=== PATIENT | female | born 1940 | race Caucasian/White ===

== ENCOUNTER 2020-08-06 17:17 | Emergency (ER) | payer MEDICARE, OTHER, SELFPAY ==
[2020-08-06 17:34] VITALS: BP 195/102; PULSE 107; RESP 24; TEMP 36.8; O2SAT 94; BMI 37.0
--- NOTE | 2020-08-06 18:30 | XRR_ITS ---
PROCEDURE INFORMATION: Exam: XR Right Wrist Exam date and time: 08/06/2020 6:36 PM Age: 80 years old Clinical indication: Injury or trauma; Fall; Blunt trauma (contusions or hematomas); Wrist; Right; Additional info: RT wrist pain TECHNIQUE: Imaging protocol: XR Right wrist. Views: 3 or more views. Total images: 3 COMPARISON: No relevant prior studies available. FINDINGS: Bones/joints: No visible acute osseous abnormality, fracture, subluxation, or dislocation. No radiographically visible joint effusion. Mild chondrocalcinosis. Osteopenia. Soft tissues: Soft tissues without evidence of edema, swelling, contusion, emphysema, or radiopaque foreign body. Vasculature: Arteriosclerosis. XR/XR wrist RT min 3V* [id number] IMPRESSION: No radiographically visible fracture.
--- NOTE | 2020-08-06 18:49 | ED_ITS ---
HPI - Extremity Problem General: Chief complaint: Extremity Problem,Nontraumatic Stated complaint: R ARM INJURY Time Seen by Provider: 08/06/20 18:43 Source: patient and family (spouse) Mode of arrival: ambulatory Limitations: no limitations History of Present Illness: HPI Narrative: Pleasant 80-year-old female patient presents to the emergency department with complaints of right wrist and right hand pain. She reports pain started in her fingers 2 days ago and now is radiating to the right wrist. She reports pulling herself up into her son's large, tall truck with her right hand to get in. She reports this occurred several times on Monday. She has not had anything for pain. She remains on Xarelto, takes Xarelto daily as prescribed, history of atrial fibrillation. MD Complaint: extremity pain and extremity swelling Pain Consistency: constant Location: right and upper extremity Quality: aching Radiation: proximal Relieving factors: immobilization and rest Exacerbating factors: range of motion Associated symptoms: Reports arthralgias; Deny chest pain, fever(s) or rash Review of Systems General: Reports: 10 or more systems reviewed and unremarkable except in HPI and below Const: Denies: fever(s), chills or diaphoresis Eyes: Denies: blurry vision or eye redness ENMT: Denies: throat pain, dental pain or disequilibrium Card: Denies: chest pain, palpitations or irregular heart rhythm Resp: Denies: dyspnea, productive cough, non-productive cough or wheezing GI: Denies: abdominal pain, nausea or vomiting : Denies: difficulty voiding or dysuria Musc: Reports: extremity pain, joint pain and joint swelling; Denies: neck pain or back pain Skin/Breast: Denies: rash or pruritus Neuro: Denies: headache(s), weakness in extremities or behavioral changes Psych: Denies: anxiety or depression Gary/Lymph: Denies: easy bruising PFSH ED PFSH: Medical History Arthritis Physical Exam Const: COMMON NORMALS: no acute distress, patient oriented x3, healthy appearing, alert and well nourished GENERAL APPEARANCE: cooperative, comfortable, well kempt, well developed and well hydrated; not anxious and not frail appearing ORIENTATION/CONSCIOUSNESS: Yes awake, Yes oriented to person, Yes oriented to place and Yes oriented to time HENMT: COMMON NORMALS: normocephalic, atraumatic, Normal external nose present and moist oral mucous membranes HEAD & SCALP: normal to inspection, normocephalic and atraumatic FACE & SINUS: normal facial exam and face symmetric NOSE: Normal external nose present Eye: COMMON NORMALS: Equal, round and reactive pupils present and EOMs intact bilaterally GENERAL EYE: appearance normal, both eyes and all related structures PUPIL: Yes Equal, round and reactive pupils present Neck/C-Spine: COMMON NORMALS: full ROM and no lymphadenopathy GENERAL: Yes normal visual inspection and Yes trachea midline CERVICAL SPINE: Yes cervical ROM normal Lymph: LYMPHATIC: no lymphadenopathy noted Chest: COMMONS NORMALS: normal inspection of the chest Resp: COMMON NORMALS: normal respiratory effort and clear to auscultation bilaterally AUSCULTATION: clear to auscultation bilaterally Cardio: COMMON NORMALS: regular rhythm, S1 normal heart sound present and S2 normal heart sound present RHYTHM: regular rhythm HEART SOUNDS: S1 normal heart sound present and S2 normal heart sound present GI: COMMON NORMALS: Soft to palpation and non-tender INSPECTION: Yes normal to inspection PALPATION: Yes Soft to palpation : COMMON NORMALS: Yes no CVA tenderness BLADDER/KIDNEY EXAM: Yes no CVA tenderness Back/Pelvis: COMMON NORMALS: no CVA tenderness and thoracic and lumbar spine normal to inspection Extremity: COMMON NORMALS: normal to inspection, capillary refill normal, no clubbing, cyanosis or edema and no pedal edema GENERAL: Yes normal exam except as noted OTHER: rt wrist with swelling radial side with erythema localized to the distal radial wrist, volar side, rt hand with swelling, flexion/extension to the digits of the rt hand noted but limited due to pain, no wounds/abrasions noted, no pain with supination/pronation Neuro: COMMON NORMALS: patient oriented x3 and no focal motor deficits SENSORIUM/ORIENTATION: Yes alert, Yes oriented to person, Yes oriented to place and Yes oriented to time SPEECH: speech normal GAIT: Yes Normal gait present MOTOR EXAM: 5/5 motor strength present throughout Psych: COMMON NORMALS: mental status grossly normal, Normal thought process present and cooperative APPEARANCE: Yes well kempt ACTIVITY/MOTOR BEHAVIOR: Yes appropriate eye contact THOUGHT PROCESS: Normal thought process present Skin: COMMON NORMALS: no rashes or lesions noted and turgor normal GENERAL SKIN EXAM: no rashes or lesions noted and turgor normal Course Vital Signs: Vital signs: Vital Signs Temperature 98.3 F 08/06/20 17:34 Pulse Rate 107 H 08/06/20 17:34 Respiratory Rate 24 H 08/06/20 17:34 Blood Pressure 195/102 08/06/20 17:34 Pulse Oximetry 94 08/06/20 17:34 MDM - Extremity (Nontraumatic) Imaging Data^: Xray Ortho: Radiologist's impression: [place] [address] [id number] ReportSigned Patient: Lizzie Coughlinit #: [id number]: [id number]#:[id number]/Sex: 80 / FADM Date: 08/06/20Loc: ERRoom/Bed:Attending Dr: Ordering Provider/Ordering MD: Shaina Turner Date of Service: 08/06/20 Procedure(s): XR wrist RT min 3V* [id number] Accession Number(s): [id number] Report Number: [id number] PROCEDURE INFORMATION: Exam: XR Right Wrist Exam date and time: 08/06/2020 6:36 PM Age: 80 years old Clinical indication: Injury or trauma; Fall; Blunt trauma (contusions or hematomas); Wrist; Right; Additional info: RT wrist pain TECHNIQUE: Imaging protocol: XR Right wrist. Views: 3 or more views. Total images: 3 COMPARISON: No relevant prior studies available. FINDINGS: Bones/joints: No visible acute osseous abnormality, fracture, subluxation, or dislocation. No radiographically visible joint effusion. Mild chondrocalcinosis. Osteopenia. Soft tissues: Soft tissues without evidence of edema, swelling, contusion, emphysema, or radiopaque foreign body. Vasculature: Arteriosclerosis. XR/XR wrist RT min 3V* [id number] IMPRESSION: No radiographically visible fracture. Dictated By:Barbi Ge By:Barbi Ge Date/Time:08/06/201906DD/ 05 Discharge Plan Discharge Patient Disposition: Home Clinical Impression: Acute traumatic arthritis Muscle strain of right wrist Qualifiers: Encounter type: initial encounter Qualified Code(s): S66.911A - Strain of unspecified muscle, fascia and tendon at wrist and hand level, right hand, initial encounter Condition: Stable Prescriptions: New Arthritis Pain (diclofenac) 1 % gel 2 g topical QID Qty: 100 RF: 0 Discharge Orders: Discharge ED (Routine); Ordered 08/06/20 Ordered By: Shaina Turner Referrals: Sheela Rodriguez MD [Primary Care Provider] - Discharge Diet: Usual diet Discharge Activity: Limit activity as instructed Patient Instructions: Wrist Injury (ED), Muscle Strain (ED), Opioid Safety Activity Restrictions/Additional Instructions: Follow-up with your primary care provider next week if not improved, return to the emergency room immediately if you notice redness swelling of the right entire arm or increased pain, fever or chills. Cool compresses to the right wrist several times daily to help with pain and swelling May take Tylenol as needed for pain, use Voltaren gel topically as prescribed to help with pain and swelling there will be no interaction between Voltaren gel and Xarelto Return to the emergency room immediately if you develop inability to feel your right hand or if fingers become discolored. Limit use of the right upper extremity until symptoms have improved Coding Level of Care Code ED [facility] Fwd Exam Comprehensive
[2020-08-06] MEDS: acetaminophen 500 mg Tablet 1000 MG PO (18:58)
== END 2020-08-06 19:55 | disposition home or self-care (01) ==
PROVIDERS: Emergency Provider Nurse Practitioner Family; PCP Family Medicine
DX: S66.911A Strain of unspecified muscle, fascia and tendon at wrist and hand level, right hand, initial encounter (principal); M12.50 Traumatic arthropathy, unspecified site; X50.9XXA Other and unspecified overexertion or strenuous movements or postures, initial encounter
CPT/HCPCS: 73110; 99283

== ENCOUNTER → 2021-06-16 10:11 | Outpatient (BNVA) | payer MEDICARE, OTHER, SELFPAY | PROVIDERS: PCP Family Medicine; Visit Provider Internal Medicine Cardiovascular Disease | DX: I25.810 Atherosclerosis of coronary artery bypass graft(s) without angina pectoris (principal); I10 Essential (primary) hypertension; I48.91 Unspecified atrial fibrillation | CPT/HCPCS: 99214; 99215 ==

== ENCOUNTER 2021-12-03 22:12 | Emergency (ER) | payer MEDICARE, OTHER, SELFPAY ==
[2021-12-03 22:16] VITALS: BP 199/101; PULSE 82; RESP 18; TEMP 36.4; O2SAT 96; BMI 32.3
--- NOTE | 2021-12-03 22:33 | ED_ITS ---
Documented by User: LORENA Sigala 12/04/21 00:35 HPI - General Adult General: Chief complaint: General Medical Stated complaint: doc sent for thin blood Time Seen by Provider: 12/03/21 22:27 History of Present Illness: 81-year-old female comes in today for complaints of abnormal lab test. Patient sees Sheela Rodriguez and had had her INR checked last Monday which showed at 8 at that time. Patient has had her warfarin held since that time and has had 2 more checks with the last INR reading 18. Patient was referred to the ER for further evaluation and treatment. Patient denied any abnormal bleeding, blood in the urine, or blood in her stool. Associated symptoms: Deny dyspnea, headache(s) or rash Review of Systems General: Reports: 10 or more systems reviewed and unremarkable except in HPI and below Resp: Denies: dyspnea GI: Denies: abdominal pain Skin/Breast: Denies: rash Neuro: Denies: headache(s) PFSH ED PFSH: Medical History Arthritis Atrial fibrillation CAD (coronary artery disease) of artery bypass graft Carotid bruit Chronic anticoagulation CKD (chronic kidney disease) Patient denies Fatigue Hx of type 2 diabetes mellitus Hyperlipidemia Hypertension Osteoporosis Rosacea TIA (transient ischemic attack) Surgical History History of parathyroidectomy Hx of cataract extraction Hx of hysterectomy Hx of salpingo-oophorectomy, bilateral S/P CABG x 4 Family History Sister Cancer CAD (coronary artery disease) Mother Diabetes CAD (coronary artery disease) Hypertension Stroke Cancer Dementia Denies family history of Clotting disorder Chronic kidney disease (CKD) Suicide Anesthesia complication Bleeding disorder Lung disease Social History Smoking and tobacco status: never smoked Alcohol intake: never Physical Exam Const: COMMON NORMALS: alert HENMT: COMMON NORMALS: normocephalic HEAD & SCALP: normocephalic Neck/C-Spine: COMMON NORMALS: full ROM Resp: COMMON NORMALS: normal respiratory effort and clear to auscultation bilaterally AUSCULTATION: clear to auscultation bilaterally Cardio: COMMON NORMALS: regular rate and regular rhythm RATE: regular rate RHYTHM: regular rhythm Extremity: COMMON NORMALS: normal to inspection Neuro: SENSORIUM/ORIENTATION: Yes alert Skin: COMMON NORMALS: turgor normal GENERAL SKIN EXAM: turgor normal Course Vital Signs: Vital signs: Vital Signs Temperature 97.6 F 12/03/21 22:16 Pulse Rate 73 12/04/21 00:36 Respiratory Rate 18 12/04/21 00:36 Blood Pressure 199/101 12/03/21 22:16 Pulse Oximetry 100 12/04/21 00:36 Oxygen Delivery Me thod 12/03/21 22:16 [facility] - General Adult Medical Decision Making 81-year-old female comes in today for concerns of abnormal INR. It was reported patient's INR was up to 18 today. Patient denies any bleeding. On exam lungs are clear to auscultation. Skin is warm and dry. Some mild senile purpura is noted. Differential diagnosis includes adverse effect of drug, DIC, hepatic disease. Reviewed exam and lab with Dr. Murry. INR was 8. After review of literature and further discussion we decided on administering 2-1/2 mg of oral vitamin K and recommend to recheck INR in 24 hours. I reviewed this with patient she reported understanding agreed to plan. Patient return in 24 hours to have INR repeated and then Dr. Sheela Rodriguez will be notified by lab. Lab Data : 12/03/21 22:55 12/03/21 22:55 Laboratory Results WBC 9.2 10^3/uL (4.0-10.0) 12/03/21 22:55 RBC 5.50 10^6/uL (4.1-5.3) H 12/03/21 22:55 Hgb 16.0 g/dL (11.5-15.3) H 12/03/21 22:55 Hct 50.6 % (37.0-47.0) H 12/03/21 22:55 MCV 92.0 fl (81-99) 12/03/21 22:55 MCH 29.1 pg (28.0-34.0) 12/03/21 22:55 MCHC 31.6 g/dL (30.0-36.0) 12/03/21 22:55 RDW 14.6 % (12.1-15.1) 12/03/21 22:55 Plt Count 344 10^3/cmm (130-400) 12/03/21 22:55 MPV 10.4 fL (7.4-10.4) 12/03/21 22:55 Neut % (Auto) 52.2 % 12/03/21 22:55 Lymph % (Auto) 32.8 % 12/03/21 22:55 Coke % (Auto) 8.3 % 12/03/21 22:55 Eos % (Auto) 5.7 % 12/03/21 22:55 Baso % (Auto) 0.8 % 12/03/21 22:55 Neut # (Auto) 4.81 10^3/uL (1.8-7.7) 12/03/21 22:55 Lymph # (Auto) 3.0 10^3/uL (0.8-4.8) 12/03/21 22:55 Coke # (Auto) 0.8 10^3/uL (0.2-0.9) 12/03/21 22:55 Eos # (Auto) 0.5 10^3/uL (0.0-0.8) 12/03/21 22:55 Baso # (Auto) 0.1 10^3/uL (0.0-0.1) 12/03/21 22:55 Nucleated RBC % (auto) 0 % 12/03/21 22: Nucleated RBCs # 0.0 /100WBC 12/03/21 22:55 PT 72.00 SECONDS (12.1-14.9) H 12/03/21 22:55 INR 8.81 (0.8-1.2) H* 12/03/21 22:55 APTT 74.2 SECONDS (23.9-36.7) H 12/03/21 22:55 Sodium 144 mmol/L (136-145) 12/03/21 22:55 Potassium 4.5 mmol/L (3.5-5.1) 12/03/21 22:55 Chloride 107 mmol/L (98-107) 12/03/21 22:55 Carbon Dioxide 25 mmol/L (22-29) 12/03/21 22:55 Anion Gap 16.5 (5-19) 12/03/21 22:55 BUN 28 mg/dL (8-23) H 12/03/21 22:55 Creatinine 1.4 mg/dL (0.5-0.9) H 12/03/21 22:55 GFR Calculation Not Reportable 12/03/21 22:55 Glucose 101 mg/dL (65-115) 12/03/21 22:55 Calculated Osmolality 304 mOsm/kg (285-295) H 12/03/21 22:55 Calcium 9.9 mg/dL (8.5-10.5) 12/03/21 22:55 Total Bilirubin 0.3 mg/dL (0.15-1.2) 12/03/21 22:55 AST 22 U/L (0-32) 12/03/21 22:55 ALT 15 U/L (0-33) 12/03/21 22:55 Alkaline Phosphatase 88 U/L (35-105) 12/03/21 22:55 Total Protein 7.9 g/dL (6.6-8.7) 12/03/21 22:55 Albumin 4.2 g/dL (3.5-5.2) 12/03/21 22:55 Globulin 3.7 g/dL (1.3-4.6) 12/03/21 22:55 Discharge Plan Discharge Patient Disposition: Home Clinical Impression: Abnormal INR Adverse reaction to drug Qualifiers: Encounter type: initial encounter Qualified Code(s): T50.905A - Adverse effect of unspecified drugs, medicaments and biological substances, initial encounter Condition: Stable Prescriptions: No Action Prosacea topical Xarelto 20 mg tablet 20 mg PO DAILY allopurinol 100 mg tablet 100 mg PO DAILY amlodipine 10 mg tablet 10 mg PO DAILY aspirin [Adult Aspirin Regimen] 81 mg tablet,delayed release (DR/EC) 81 mg PO DAILY clonidine HCl 0.3 mg tablet 0.3 mg PO DAILY isosorbide mononitrate 120 mg tablet extended release 24 hr 120 mg PO DAILY lisinopril 10 mg tablet 10 mg PO DAILY nitroglycerin [Nitrostat] 0.4 mg tablet, sublingual 0.4 mg sublingual Q5M PRN Rx Instructions: do not exceed 3 doses per episode glimepiride 2 mg tablet 2 mg PO DAILY lovastatin 40 mg tablet 40 mg PO DAILY hydralazine 25 mg tablet 25 mg PO TID Qty: 90 6RF metoprolol succinate 25 mg tablet extended release 24 hr 25 mg PO DAILY Qty: 90 3RF Discharge Orders: Discharge ED (Routine); Ordered 12/04/21 Ordered By: Danilo Alexandre Referrals: Sheela Rodriguez MD [Primary Care Provider] - Discharge Diet: Usual diet Discharge Activity: Increase activity as tolerated Patient Instructions: Vitamin K in Foods (ED), Warfarin Toxicity (ED) Activity Restrictions/Additional Instructions: Have a INR repeated tomorrow. Dr. Rodriguez will be notified of the results and will make further recommendations. Return to the ER for any signs of bleeding. Coding Level of Care Code ED Assistant Professor In Family Studies for [facility] Fwd Exam Detailed Documented by User: Angus Murry, 12/04/21 14:42 HPI - General Adult General: Chief complaint: General Medical Stated complaint: doc sent for thin blood Time Seen by Provider: 12/03/21 22:27 PFSH ED PFSH: Medical History Arthritis Atrial fibrillation CAD (coronary artery disease) of artery bypass graft Carotid bruit Chronic anticoagulation CKD (chronic kidney disease) Patient denies Fatigue Hx of type 2 diabetes mellitus Hyperlipidemia Hypertension Osteoporosis Rosacea TIA (transient ischemic attack) Surgical History History of parathyroidectomy Hx of cataract extraction Hx of hysterectomy Hx of salpingo-oophorectomy, bilateral S/P CABG x 4 Family History Sister Cancer CAD (coronary artery disease) Mother Diabetes CAD (coronary artery disease) Hypertension Stroke Cancer Dementia Denies family history of Clotting disorder Chronic kidney disease (CKD) Suicide Anesthesia complication Bleeding disorder Lung disease Social History Smoking and tobacco status: never smoked Alcohol intake: never Course Vital Signs: Vital signs: Vital Signs Temperature 97.6 F 12/03/21 22:16 Pulse Rate 73 12/04/21 00:36 Respiratory Rate 18 12/04/21 00:36 Blood Pressure 199/101 12/03/21 22:16 Pulse Oximetry 100 12/04/21 00:36 Oxygen Delivery Me thod 12/03/21 22:16 MDM - General Adult Medical Decision Making 81-year-old female comes in today for concerns of abnormal INR. It was reported patient's INR was up to 18 today. Patient denies any bleeding. On exam lungs are clear to auscultation. Skin is warm and dry. Some mild senile purpura is noted. Differential diagnosis includes adverse effect of drug, DIC, hepatic d isease. Reviewed exam and lab with Dr. Murry. INR was 8. After review of literature and further discussion we decided on administering 2-1/2 mg of oral vitamin K and recommend to recheck INR in 24 hours. I reviewed this with patient she reported understanding agreed to plan. Patient return in 24 hours to have INR repeated and then Dr. Sheela Rodriguez will be notified by lab. This patient was evaluated by LORENA Cervantes. I agree with his history, evaluation, and treatment. He discussed this case with me. We agreed on oral vitamin K therapy given her continued warfarin Coagulopathy despite not having her medication in at least two days. Close outpatient follow up for repeat INR testing. Lab Data : 12/03/21 22:55 12/03/21 22:55 Laboratory Results WBC 9.2 10^3/uL (4.0-10.0) 12/03/21 22:55 RBC 5.50 10^6/uL (4.1-5.3) H 12/03/21 22:55 Hgb 16.0 g/dL (11.5-15.3) H 12/03/21 22:55 Hct 50.6 % (37.0-47.0) H 12/03/21 22:55 MCV 92.0 fl (81-99) 12/03/21 22:55 MCH 29.1 pg (28.0-34.0) 12/03/21 22:55 MCHC 31.6 g/dL (30.0-36.0) 12/03/21 22:55 RDW 14.6 % (12.1-15.1) 12/03/21 22:55 Plt Count 344 10^3/cmm (130-400) 12/03/21 22:55 MPV 10.4 fL (7.4-10.4) 12/03/21 22:55 Neut % (Auto) 52.2 % 12/03/21 22:55 Lymph % (Auto) 32.8 % 12/03/21 22:55 Coke % (Auto) 8.3 % 12/03/21 22:55 Eos % (Auto) 5.7 % 12/03/21 22:55 Baso % (Auto) 0.8 % 12/03/21 22:55 Neut # (Auto) 4.81 10^3/uL (1.8-7.7) 12/03/21 22:55 Lymph # (Auto) 3.0 10^3/uL (0.8-4.8) 12/03/21 22:55 Coke # (Auto) 0.8 10^3/uL (0.2-0.9) 12/03/21 22:55 Eos # (Auto) 0.5 10^3/uL (0.0-0.8) 12/03/21 22:55 Baso # (Auto) 0.1 10^3/uL (0.0-0.1) 12/03/21 22:55 Nucleated RBC % (auto) 0 % 12/03/21: Nucleated RBCs # 0.0 /100WBC 12/03/21 22:55 PT 72.00 SECONDS (12.1-14.9) H 12/03/21 22:55 INR 8.81 (0.8-1.2) H* 12/03/21 22:55 APTT 74.2 SECONDS (23.9-36.7) H 12/03/21 22:55 Sodium 144 mmol/L (136-145) 12/03/21 22:55 Potassium 4.5 mmol/L (3.5-5.1) 12/03/21 22:55 Chloride 107 mmol/L (98-107) 12/03/21 22:55 Carbon Dioxide 25 mmol/L (22-29) 12/03/21 22:55 Anion Gap 16.5 (5-19) 12/03/21 22:55 BUN 28 mg/dL (8-23) H 12/03/21 22:55 Creatinine 1.4 mg/dL (0.5-0.9) H 12/03/21 22:55 GFR Calculation Not Reportable 12/03/21 22:55 Glucose 101 mg/dL (65-115) 12/03/21 22:55 Calculated Osmolality 304 mOsm/kg (285-295) H 12/03/21 22:55 Calcium 9.9 mg/dL (8.5-10.5) 12/03/21 22:55 Total Bilirubin 0.3 mg/dL (0.15-1.2) 12/03/21 22:55 AST 22 U/L (0-32) 12/03/21 22:55 ALT 15 U/L (0-33) 12/03/21 22:55 Alkaline Phosphatase 88 U/L (35-105) 12/03/21 22:55 Total Protein 7.9 g/dL (6.6-8.7) 12/03/21 22:55 Albumin 4.2 g/dL (3.5-5.2) 12/03/21 22:55 Globulin 3.7 g/dL (1.3-4.6) 12/03/21 22:55 Discharge Plan Discharge Patient Disposition: Home Clinical Impression: Abnormal INR Adverse reaction to drug Qualifiers: Encounter type: initial encounter Qualified Code(s): T50.905A - Adverse effect of unspecified drugs, medicaments and biological substances, initial encounter Condition: Stable Prescriptions: No Action Prosacea topical Xarelto 20 mg tablet 20 mg PO DAILY allopurinol 100 mg tablet 100 mg PO DAILY amlodipine 10 mg tablet 10 mg PO DAILY aspirin [Adult Aspirin Regimen] 81 mg tablet,delayed release (DR/EC) 81 mg PO DAILY clonidine HCl 0.3 mg tablet 0.3 mg PO DAILY isosorbide mononitrate 120 mg tablet extended release 24 hr 120 mg PO DAILY lisinopril 10 mg tablet 10 mg PO DAILY nitroglycerin [Nitrostat] 0.4 mg tablet, sublingual 0.4 mg sublingual Q5M PRN Rx Instructions: do not exceed 3 doses per episode glimepiride 2 mg tablet 2 mg PO DAILY lovastatin 40 mg tablet 40 mg PO DAILY hydralazine 25 mg tablet 25 mg PO TID Qty: 90 6RF metoprolol succinate 25 mg tablet extended release 24 hr 25 mg PO DAILY Qty: 90 3RF Discharge Orders: Discharge ED (Routine); Ordered 12/04/21 Ordered By: Danilo Alexandre Referrals: Sheela Rodriguez MD [Primary Care Provider] - Discharge Diet: Usual diet Discharge Activity: Increase activity as tolerated Patient Instructions: Vitamin K in Foods (ED), Warfarin Toxicity (ED) Activity Restrictions/Additional Instructions: Have a INR repeated tomorrow. Dr. Rodriguez will be notified of the results and will make further recommendations. Return to the ER for any signs of bleeding. Coding Level of Care Code ED Assistant Professor In Family Studies for Chg Fwd Exam Detailed
[2021-12-03 23:03] LABS: Basophils # 0.1 10^3/uL (0.0-0.1); Basophils % 0.8 %; Eosinophils # 0.5 10^3/uL (0.0-0.8); Eosinophils % 5.7 %; Hematocrit 50.6 % (37.0-47.0); Lymphocytes % 32.8 %; Mean Corpuscular HGB Conc 31.6 g/dL (30.0-36.0); Mean Corpuscular Hemoglobin 29.1 pg (28.0-34.0); Mean Platelet Volume 10.4 fL (7.4-10.4); Monocytes # 0.8 10^3/uL (0.2-0.9); Monocytes % 8.3 %; Neutrophils # 4.81 10^3/uL (1.8-7.7); Neutrophils % 52.2 %; Nucleated Red Blood Cells % 0 %; Platelet Count 344 10^3/cmm (130-400); Red Cell Distribution Width 14.6 % (12.1-15.1); White Blood Count 9.2 10^3/uL (4.0-10.0)
[2021-12-03 23:24] LABS: Alanine Aminotransferase 15 U/L (0-33); Albumin Level 4.2 g/dL (3.5-5.2); Alkaline Phosphatase 88 U/L (35-105); Anion Gap 16.5 (5-19); Aspartate Amino Transferase 22 U/L (0-32); Blood Urea Nitrogen 28 mg/dL (8-23); Calcium 9.9 mg/dL (8.5-10.5); Carbon Dioxide 25 mmol/L (22-29); Chloride 107 mmol/L (98-107); Globulin 3.7 g/dL (1.3-4.6); Glucose 101 mg/dL (65-115); Osmolality Calculated 304 mOsm/kg (285-295); Potassium 4.5 mmol/L (3.5-5.1); Sodium 144 mmol/L (136-145); Total Bilirubin 0.3 mg/dL (0.15-1.2); Total Protein 7.9 g/dL (6.6-8.7)
[2021-12-03 23:28] LABS: Partial Thromboplastin Time 74.2 SECONDS (23.9-36.7)
[2021-12-03 23:55] LABS: INR 8.81 (0.8-1.2)
[2021-12-04] MEDS: phytonadione (ADULT) 10 mg/mL Ampule 1 mL 2.5 MG PO (00:33)
[2021-12-04 00:36] VITALS: PULSE 73; RESP 18; O2SAT 100
== END 2021-12-04 00:37 | disposition home or self-care (01) ==
PROVIDERS: Emergency Medicine; Emergency Provider Nurse Practitioner Family; PCP Family Medicine
DX: R79.9 Abnormal finding of blood chemistry, unspecified (principal); T50.905A Adverse effect of unspecified drugs, medicaments and biological substances, initial encounter; Z79.82 Long term (current) use of aspirin; Z79.84 Long term (current) use of oral hypoglycemic drugs; I25.10 Atherosclerotic heart disease of native coronary artery without angina pectoris; E11.9 Type 2 diabetes mellitus without complications; E78.5 Hyperlipidemia, unspecified; I10 Essential (primary) hypertension; Z86.73 Personal history of transient ischemic attack (TIA), and cerebral infarction without residual deficits; Z95.1 Presence of aortocoronary bypass graft
CPT/HCPCS: 80053; 85025; 85610; 85730; 99283; J3430

== ENCOUNTER 2021-12-05 09:29 | Outpatient (CLI) | payer MEDICARE, OTHER, SELFPAY ==
[2021-12-05 09:57] LABS: INR 3.18 (0.8-1.2)
== END 2021-12-05 09:30 | disposition home or self-care (01) ==
PROVIDERS: PCP Family Medicine; Visit Provider Family Medicine
DX: Z79.899 Other long term (current) drug therapy (principal); I25.10 Atherosclerotic heart disease of native coronary artery without angina pectoris; R79.89 Other specified abnormal findings of blood chemistry
CPT/HCPCS: 85610

== ENCOUNTER 2021-12-22 11:44 | Observation (INO) | payer MEDICARE, OTHER, SELFPAY ==
[2021-12-22] VITALS (9 sets, daily range): BP systolic 149–186; BP diastolic 66–121; PULSE 60–80; RESP 14–18; TEMP 36.6–36.7; O2SAT 90–95; BMI 33.4; BMI 33.3
--- NOTE | 2021-12-22 11:46 | ECG_ITS ---
[facility] Test Date: 2021-12-22 Pat Name: Lizzie Coughlin Department: Room: Gender: Female [employer]: : 1940 Requested By: Cecilia Orellana Order Number: [id number] Bishnu MD: Ketan Huerta M.D. Measurements Intervals [place] Rate: 77 P: CA: QRS: -22 QRSD: 81 T: 156 QT: 380 QTc: 432 Interpretive Statements ATRIAL FIBRILLATION ANTEROSEPTAL MYOCARDIAL INFARCTION , OF INDETERMINATE AGE [40+ ms Q WAVE IN V1-V4] Compared to ECG 10/10/2018 20:28:30 Incomplete right bundle-branch block no longer present Myocardial infarct finding still present Electronically Signed On 12-23-2021 10:36:30 CDT by Ketan Huerta M.D. [id number]
--- NOTE | 2021-12-22 11:46 | CT_ITS ---
WS: [id number] CT HEAD NONCONTRAST HISTORY: Symptoms of Acute Stroke TECHNIQUE: Contiguous axial imaging performed through the brain in 2.5 mm imaging. Bone and soft tiss ue windows. Sagittal and coronal reformats reviewed. All CT scans at [facility] use at least one of these dose optimization techniques: automated exposure control; mA and/or kV adjustment per pa tient size (includes targeted exams where dose is matched to clinical indication); or iterative recon struction. DLP: 985.64 mGy-cm. COMPARISON: 11/22/2015 No acute intracranial hemorrhage or edema. Increased attenuation in the sulci towards the LEFT fronta l vertex corresponds to an artifact. Hyperechoic focus in the LEFT parasagittal location was present in 2016. Small vessel ischemic changes and prior lacunar infarcts. There is a prior lacunar infarct i n the LEFT thalamus and RIGHT basal ganglia. Remote infarct with encephalomalacia involving the media l LEFT occipital lobe. There is extra-axial dilatation of the adjacent occipital horn of the lateral ventricle. Mild atrophy. Ventricles: Otherwise no significant dilatation of the ventricles. No inferior displacement of cerebellar tonsils. Paranasal sinuses: As visualized are clear. Mastoid air cells: Well pneumatized. Calvarium and scalp: Skull is intact with no soft tissue edema or swelling. There is severe, advanced calcification in the distal vertebral arteries, LEFT greater than RIGHT and through the intracranial carotid arteries. CT/CT head wo con* [id number] IMPRESSION: 1. No acute intracranial hemorrhage or edema. 2. 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 3. Cerebral atrophy and small vessel ischemic disease. Remote lacunar infarcts in the LEFT thalamus and RIGHT basal ganglia. 4. 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 Notified Cecilia Orellana MD at 12/22/2021 12:10 PM. Report given to Jeaneth patient's isha se.
[2021-12-22 12:01] LABS: Basophils # 0.1 10^3/uL (0.0-0.1); Basophils % 0.9 %; Eosinophils # 0.4 10^3/uL (0.0-0.8); Eosinophils % 3.3 %; Hematocrit 46.6 % (37.0-47.0); Hemoglobin 14.8 g/dL (11.5-15.3); Lymphocytes # 2.6 10^3/uL (0.8-4.8); Lymphocytes % 23.9 %; Mean Corpuscular HGB Conc 31.8 g/dL (30.0-36.0); Mean Corpuscular Hemoglobin 29.4 pg (28.0-34.0); Mean Corpuscular Volume 92.5 fl (81-99); Mean Platelet Volume 10.8 fL (7.4-10.4); Monocytes # 0.6 10^3/uL (0.2-0.9); Neutrophils # 7.02 10^3/uL (1.8-7.7); Neutrophils % 65.3 %; Nucleated Red Blood Cells % 0 %; Platelet Count 335 10^3/cmm (130-400); Red Blood Count 5.04 10^6/uL (4.1-5.3); Red Cell Distribution Width 14.9 % (12.1-15.1); White Blood Count 10.7 10^3/uL (4.0-10.0)
[2021-12-22 12:15] LABS: INR 1.27 (0.8-1.2)
[2021-12-22 12:16] LABS: Partial Thromboplastin Time 30.3 SECONDS (23.9-36.7)
--- NOTE | 2021-12-22 12:43 | ED_ITS ---
HPI - General Adult General: Chief complaint: Altered Mental Status Stated complaint: Stroke Alert Time Seen by Provider: 12/22/21 11:46 History of Present Illness: Patient is an 81-year-old female with a history of atrial fibrillation not currently on Xarelto, CAD, CKD, hypertension hyperlipidemia who presents to the emergency room for evaluation of acute confusion and possible strokelike symptoms. Patient was seen earlier today at Dr. Jenaro Vaughan's office around 1045 this morning. While patient was there, patient was speaking with her son on the phone. Patient was noted to be confused and incoherent. Patient per was normal up until 1045 this morning. At which point time, healthcare staff was worried that patient may have speaking difficulty and possible right-sided facial droop. A stroke alert was called and patient was brought to the emergency room for further evaluation. On arrival, patient has confusion and is only able to answer 1 question correctly. Patient had no speech difficulty and no findings of expressive or receptive aphasia. Patient is not noted to have any facial droop at this time. On further questioning, patient denies any chest pain, shortness breath, focal weakness in the arms or leg, diplopia, diarrhea melena/hematochezia, or p alpitations. Onset: 1045am Duration: unknown Location:home Severity:moderate/severe Associated symptoms: Deny chest pain, dyspnea, nausea, rash, palpitations or vo miting Review of Systems Const: Denies: fever(s) or chills Eyes: Denies: change in vision ENMT: Denies: mouth pain Card: Denies: chest pain or palpitations Resp: Denies: dyspnea or non-productive cough GI: Denies: abdominal pain, nausea, vomiting or diarrhea : Denies: dysuria Musc: Denies: extremity pain Skin/Breast: Denies: rash or new lesions Neuro: Reports: other (+confusion); Denies: weakness in extremities Psych: Reports: other (Normal mood) Gary/Lymph: Denies: easy bruising PFS ED PFSH: Medical History Arthritis Atrial fibrillation CAD (coronary artery disease) of artery bypass graft Carotid bruit Chronic anticoagulation CKD (chronic kidney disease) Patient denies Fatigue Hx of type 2 diabetes mellitus Hyperlipidemia Hypertension Osteoporosis Rosacea TIA (transient ischemic attack) Surgical History History of parathyroidectomy Hx of cataract extraction Hx of hysterectomy Hx of salpingo-oophorectomy, bilateral S/P CABG x 4 Family History Sister Cancer CAD (coronary artery disease) Mother Diabetes CAD (coronary artery disease) Hypertension Stroke Cancer Dementia Denies family history of Clotting disorder Chronic kidney disease (CKD) Suicide Anesthesia complication Bleeding disorder Lung disease Social History Smoking and tobacco status: never smoked Alcohol intake: never Physical Exam Const: COMMON NORMALS: alert HENMT: COMMON NORMALS: atraumatic HEAD & SCALP: atraumatic MOUTH: moist mucous membranes not abnormal Eye: COMMON NORMALS: EOMs intact bilaterally and conjunctivae normal CONJUNCTIVA: Yes conjunctivae normal Neck/C-Spine: COMMON NORMALS: full ROM and supple Resp: COMMON NORMALS: normal respiratory effort and clear to auscultation bilaterally AUSCULTATION: clear to auscultation bilaterally Cardio: COMMON NORMALS: regular rate RATE: regular rate GI: COMMON NORMALS: Soft to palpation and non-tender PALPATION: Yes Soft to palpation Extremity: COMMON NORMALS: full ROM Neuro: SENSORIUM/ORIENTATION: Yes alert MOTOR EXAM: No Abnormal motor strength present and Other motor observations present (no focal motor deficits) OTHER: NEURO: NIHSS: 1 1. Level of Consciousness 1 A) LOC Responsiveness 0 B) LOC Questions 0 C) LOC Commands 0 2. Horizontal Eye Movement 0 3. Visual field test 0 4. Facial Palsy 0 5. Motor Arm 0 6. Motor Leg 0 7. Limb Ataxia 0 8. Sensation 0 9. Language 0 10. Speech 0 11. Extinction and Inattention 0 Psych: COMMON NORMALS: speech normal SPEECH: Yes normal speech MOOD & AFFECT: Yes euthymic mood Course Vital Signs: Vital signs: Vital Signs Temperature 98.0 F 12/23/21 16:41 Pulse Rate 72 12/23/21 16:41 Respiratory Rate 16 12/23/21 16:41 Blood Pressure 166/91 12/23/21 16:41 Pulse Oximetry 91 12/23/21 16:41 Oxygen Delivery Ca thod 12/23/21 16:00 MDM - General Adult Medical Decision Making Patient is an 81-year-old female with a history of atrial fibrillation not currently on Xarelto, CAD, CKD, hypertension hyperlipidemia who presents to the emergency room for evaluation of acute confusion and possible strokelike symptoms. However, patient has NIH stroke scale 1 for also only answering 1 question. Neuro exam is unremarkable. CT has negative for any acute findings. Patient continues to hemodynamically stable. There is no focal neurological findings. Lab work-up showed troponin 12 7. Rest of numbers within normal limit. Given new onset of altered mental status 1045, patient was admitted to hospital for further evaluation. Disposition: admission Lab Data : 12/23/21 03:31 12/23/21 03:[address] 12/22/21 11:46 IMPRESSION: 1. No acute intracranial hemorrhage or edema. 2. 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 3. Cerebral atrophy and small vessel ischemic disease. Remote lacunar infarcts in the LEFT thalamus and RIGHT basal ganglia. 4. 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 Notified Cecilia Orellana MD at 12/22/2021 12:10 PM. Report given to Jeaneth patient's nurse. Chest X-Ray 12/22/21 13:03 IMPRESSION: Cardiomegaly. No acute chest abnormality. Head/Neck CTA 12/22/21 17:30 IMPRESSION: 1. Focal area of severe stenosis in the left vertebral artery proximal to the basilar artery. This has greater significance as the primary blood supply of the posterior circulation given variant anatomy with termination of the right vertebral artery at the posterior inferior cerebellar artery. No additional areas of severe stenosis or occlusion. 2. Old infarct noted in the left occipital lobe. IMPRESSION: Moderate stenosis at the left common carotid bulb. Mild stenosis of the origins of the internal carotid arteries and right common carotid bulb. No occlusion. REFERENCES: NASCET CRITERIA. The degree of stenosis in the cervical segment of the internal carotid artery is based on NASCET criteria. Normal is no stenosis. Mild is less than 50% stenosis. Moderate is 50-69% stenosis. Severe is 70% to 99% stenosis. Total occlusion is no detectable patent lumen. Laboratory Results WBC 10.7 10^3/uL (4.0-10.0) H 12/22/21 11:50 RBC 5.04 10^6/uL (4.1-5.3) 12/22/21 11:50 Hgb 14.8 g/dL (11.5-15.3) 12/22/21 11:50 Hct 46.6 % (37.0-47.0) 12/22/21 11:50 MCV 92.5 fl (81-99) 12/22/21 11:50 MCH 29.4 pg (28.0-34.0) 12/22/21 11:50 MCHC 31.8 g/dL (30.0-36.0) 12/22/21 11:50 RDW 14.9 % (12.1-15.1) 12/22/21 11:50 Plt Count 335 10^3/cmm (130-400) 12/22/21 11:50 MPV 10.8 fL (7.4-10.4) H 12/22/21 11:50 Neut % (Auto) 65.3 % 12/22/21 11:50 Lymph % (Auto) 23.9 % 12/22/21 11:50 Cannon % (Auto) 6.0 % 12/22/21 11:50 Eos % (Auto) 3.3 % 12/22/21 11:50 Baso % (Auto) 0.9 % 12/22/21 11:50 Neut # (Auto) 7.02 10^3/uL (1.8-7.7) 12/22/21 11:50 Lymph # (Auto) 2.6 10^3/uL (0.8-4.8) 12/22/21 11:50 Cannon # (Auto) 0.6 10^3/uL (0.2-0.9) 12/22/21 11:50 Eos # (Auto) 0.4 10^3/uL (0.0-0.8) 12/22/21 11:50 Baso # (Auto) 0.1 10^3/uL (0.0-0.1) 12/22/21 11:50 Nucleated RBC % (auto) 0 % 12/22/21 11:50 Nucleated RBCs # 0.0 /100WBC 12/22/21 11:50 PT 16.20 SECONDS (12.1-14.9) H 12/22/21 11:50 INR 1.27 (0.8-1.2) H 12/22/21 11:50 APTT 30.3 SECONDS (23.9-36.7) 12/22/21 11:50 Sodium 139 mmol/L (136-145) 12/22/21 13:27 Potassium 4.0 mmol/L (3.5-5.1) 12/22/21 13:27 Chloride 104 mmol/L (98-107) 12/22/21 13:27 Carbon Dioxide 24 mmol/L (22-29) 12/22/21 13:27 Anion Gap 15.0 (5-19) 12/22/21 13:27 BUN 16 mg/dL (8-23) 12/22/21 13:27 Creatinine 1.2 mg/dL (0.5-0.9) H 12/22/21 13:27 GFR Calculation Not Reportable 12/22/21 13:27 Glucose 142 mg/dL (65-115) H 12/22/21 13:27 Estimat Average Glucose 214 12/22/21 11:50 Hemoglobin A1c 9.1 % (4.0-6.0) H 12/22/21 11:50 Calculated Osmolality 292 mOsm/kg (285-295) 12/22/21 13:27 Calcium 10.0 mg/dL (8.5-10.5) 12/22/21 13:27 Total Bilirubin 0.5 mg/dL (0.15-1.2) 12/22/21 13:27 AST 26 U/L (0-32) 12/22/21 13:27 ALT 11 U/L (0-33) 12/22/21 13:27 Alkaline Phosphatase 81 U/L (35-105) 12/22/21 13:27 Troponin T Baseline 12 ng/L (0-10) H 12/22/21 12:38 Troponin T 120 Minute 12.96 ng/L (0-10) H 12/22/21 15:06 Delta Troponin T 0.96 ABS# (0-10) 12/22/21 15:06 Total Protein 7.1 g/dL (6.6-8.7) 12/22/21 13:27 Albumin 3.8 g/dL (3.5-5.2) 12/22/21 13:27 Globulin 3.3 g/dL (1.3-4.6) 12/22/21 13:27 Procalcitonin 0.07 ng/mL (0-0.5) 12/22/21 15:06 TSH 3.14 uIU/mL (0.27-4.20) 12/22/21 15:06 Urine Color Yellow (Yellow) 12/22/21 14:27 Urine Appearance Clear (CLEAR) 12/22/21 14:27 Urine pH 5 (5-7) 12/22/21 14:27 Ur Specific [place] 1.015 (1.005-1.030) 12/22/21 14:27 Urine Protein Neg (Negative) 12/22/21 14:27 Urine Glucose (UA) Norm (Normal) 12/22/21 14:27 Urine Ketones Negative (Negative) 12/22/21 14:27 Urine Blood Neg (Negative) 12/22/21 14:27 Urine Nitrate Negative (Negative) 12/22/21 14:27 Urine Bilirubin Neg (Negative) 12/22/21 14:27 Urine Urobilinogen Norm mg/dL (Negative) 12/22/21 14:27 Ur Leukocyte Esterase Negative (Negative) 12/22/21 14:27 Urine RBC Rare /hpf (0-2) 12/22/21 13:50 Urine WBC 5-10 /hpf (0-5) H 12/22/21 13:50 Ur Squamous Epith Cells 10-15 /hpf (0-5) H 12/22/21 13:50 Amorphous Sediment Not Reportable 12/22/21 13:50 Urine Bacteria 2+ /hpf (NONE) H 12/22/21 13:50 Hyaline Casts 0-4 /lpf H 12/22/21 13:50 Urine Mucus Trace /hpf 12/22/21 13:50 Imaging Data Other Imaging: Radiologist's impression: [address] [address] [address] Scan Report Signed Patient: Lizzie Coughlin Unit #: [id number] : 1940 Age/Sex: 81 / F ADM Date: 12/22/21 Loc: ER Room/Bed: Attending Dr: Ordering Provider/Ordering MD: Cecilia Orellana MD Date of Service: 12/22/21 Procedure(s): CT head wo con* [id number] Accession Number(s): [id number] Report Number: [id number] WS: [id number] CT HEAD NONCONTRAST HISTORY: Symptoms of Acute Stroke TECHNIQUE: Contiguous axial imaging performed through the brain in 2.5 mm imaging. Bone and soft tissue windows. Sagittal and coronal reformats reviewed.? All CT scans at [facility] use at least one of these dose optimization techniques: automated exposure control; mA and/or kV adjustment per patient size (includes targeted exams where dose is matched to clinical indication); or iterative reconstruction. DLP: 985.64 mGy-cm. COMPARISON: 11/22/2015 No acute intracranial hemorrhage or edema. Increased attenuation in the sulci towards the LEFT frontal vertex corresponds to an artifact. Hyperechoic focus in the LEFT parasagittal location was present in 2016. Small vessel ischemic changes and prior lacunar infarcts. There is a prior lacunar infarct in the LEFT thalamus and RIGHT basal ganglia. Remote infarct with encephalomalacia involving the medial LEFT occipital lobe. There is extra-axial dilatation of the adjacent occipital horn of the lateral ventricle. Mild atrophy. Ventricles:? Otherwise no significant dilatation of the ventricles. No inferior displacement of cerebellar tonsils. Paranasal sinuses: As visualized are clear. Mastoid air cells: Well pneumatized. Calvarium and scalp: Skull is intact with no soft tissue edema or swelling. There is severe, advanced calcification in the distal vertebral arteries, LEFT g reater than RIGHT and through the intracranial carotid arteries. CT/CT head wo con* [id number] IMPRESSION: ? 1.? No acute intracranial hemorrhage or edema. 2.? 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 3.? Cerebral atrophy and small vessel ischemic disease. Remote lacunar infarcts in the LEFT thalamus and RIGHT basal ganglia. 4.? 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 ? Notified Cecilia Orellana MD at 12/22/2021 12:10 PM. Report given to Jeaneth patient's nurse. ? ? Dictated By: Ramya Madsen DO Signed By: Ramya Madsen DO Signed Date/Time: 12/22/21 1211 DD/ [address] [address] XRay Report Signed Patient: Lizzie Coughlin Unit #: [id number] : 1940 Age/Sex: 81 / F ADM Date: 12/22/21 Loc: ER Room/Bed: Attending Dr: Ordering Provider/Ordering MD: Cecilia Orellana MD Date of Service: 12/22/21 Procedure(s): XR chest 1V portable [id number] Accession Number(s): [id number] Report Number: [id number] WS: [id number] XR chest 1V portable [id number] REASON FOR EXAM: chest pain FINDINGS: Chest is unchanged compared to 10/10/2018. Status post aorto coronary artery bypass surgery. Mild cardiomegaly. Calcified granulomatous disease in both hemithoraces. Chronic interstitial changes in the left lower lung. No acute pulmonary parenchymal or pleural abnormality. XR/XR chest 1V portable [id number] IMPRESSION: Cardiomegaly. No acute chest abnormality. ? ? Dictated By: Los Simmons Jr, MD Signed By: Los Simmons Jr, MD Signed Date/Time: 12/22/211406 DD/ 140 Discharge Plan Discharge Patient Disposition: Admitted As Inpatient Admit Provider: George Johnston Clinical Impression: Altered mental status, Acute confusion Condition: Stable Discharge Diet: Cardiac, Diabetic and Low Salt Discharge Activity: Increase activity as tolerated Coding Level of Care Code ED Client Services Representative for Chg Fwd Exam Comprehensive
--- NOTE | 2021-12-22 13:03 | XR_ITS ---
WS: [id number] XR chest 1V portable [id number] REASON FOR EXAM: chest pain FINDINGS: Chest is unchanged compared to 10/10/2018. Status post aorto coronary artery bypass surgery. Mild cardiomegaly. Calcified granulomatous disease in both hemithoraces. Chronic interstitial changes in the left lower lung. No acute pulmonary parenchymal or pleural abnormality. XR/XR chest 1V portable [id number] IMPRESSION: Cardiomegaly. No acute chest abnormality.
[2021-12-22 13:24] LABS: Troponin(5th) Baseline 12 ng/L (0-10)
[2021-12-22 13:51] LABS: Alanine Aminotransferase 11 U/L (0-33); Albumin Level 3.8 g/dL (3.5-5.2); Alkaline Phosphatase 81 U/L (35-105); Aspartate Amino Transferase 26 U/L (0-32); Blood Urea Nitrogen 16 mg/dL (8-23); Carbon Dioxide 24 mmol/L (22-29); Chloride 104 mmol/L (98-107); Creatinine Clr Calc Pharmacy 42.8088; Globulin 3.3 g/dL (1.3-4.6); Glucose 142 mg/dL (65-115); Osmolality Calculated 292 mOsm/kg (285-295); Sodium 139 mmol/L (136-145); Total Bilirubin 0.5 mg/dL (0.15-1.2); Total Protein 7.1 g/dL (6.6-8.7)
[2021-12-22 14:45] LABS: Add Urine Microscopic? NO; Charge for UA Resulting for Rev
[2021-12-22 14:55] LABS: Bilirubin Urine Neg (Negative); Blood Urine Neg (Negative); Glucose Urine UA Norm (Normal); Ketones Urine Negative (Negative); Leukocyte Esterase Urine Negative (Negative); Nitrate Urine Negative (Negative); Protein Urine Neg (Negative); Specific Gravity, Urine 1.015 (1.005-1.030); Urine Appearance Clear (CLEAR); Urine Color Yellow (Yellow); Urobilinogen Urine Norm (Negative); pH Urine 5 (5-7)
[2021-12-22 15:31] LABS: Troponin 5 2HR 12.96 ng/L (0-10); Troponin 5 2HR Delta 0.96 ABS# (0-10)
--- NOTE | 2021-12-22 15:41 | PM.HP ---
Providers/Chief Complaint Primary Care Provider: Sheela Rodriguez MD Chief Complaint: Stroke Alert History of Present Illness Lizzie Coughlin is a 81 year old female with past medical history of atrial fibrillation on warfarin, coronary artery disease, CKD, hypertension, hyperlipidemia, type 2 diabetes mellitus, TIA presents to the emergency room for evaluation for acute confusion and possible strokelike symptoms. 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 Subsequently code stroke was called. Around 1045 this AM. Patient was speaking to her son on the phone and was noted to be confused and incoherent. Patient's states that she was normal up until this morning. Due to concerns of healthcare staff code stroke was called. Possible right facial droop was also noted. On arrival to ER patient had confusion and was only able to answer 1 question correctly. There was no speech difficulty and no findings of expressive or receptive aphasia. She did not have a facial droop at that time either. Patient denies chest pain, shortness of breath, focal weakness in arms or legs, diplopia, diarrhea, melena, medic easier palpitations at that time. The above history is obtained by ER note. In the ER [facility] H physical to 1. CT head done which showed no acute intracranial hemorrhage or edema. Remote medial left occipital lobe infarct with encephalomalacia. Cerebral atrophy and small vessel ischemic disease. Remote lacunar infarction left thalamus and right basal ganglia. 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 ER physician stated that patient is not a candidate for tPA after he discussed the case with on-call neurologist. She will need to be admitted for stroke/TIA work-up. Case was discussed with neurology on-call who recommended admission for stroke work-up. When I saw the patient patient did not have any neurological deficits but was slightly confused. She was able to answer questions but seem to be confused at times. She thought it was a year 1923 but knew her birthdate and her name. Patient stated that she was currently in [facility]. Patient is a poor historian and unable to give me much details at this time. present at bedside. He also stated that patient is a little more confused than her normal self. Medications/Allergies Home Medications Medication Instructions Recorded Confirmed Last Taken Type allopurinol 100 mg tablet 100 mg PO DAILY 10/30/20 12/22/21 12/22/21 History amlodipine 10 mg tablet 10 mg PO DAILY 10/30/20 12/22/21 12/22/21 History aspirin 81 mg tablet,delayed 81 mg PO DAILY 10/30/20 12/22/21 Unknown History release (Adult Aspirin Regimen) clonidine HCl 0.3 mg tablet 0.3 mg PO DAILY 10/30/20 12/22/21 12/22/21 History isosorbide mononitrate 120 mg 120 mg PO DAILY 10/30/20 12/22/21 12/22/21 History tablet,extended release 24 hr lisinopril 10 mg tablet 20 mg PO DAILY 10/30/20 12/22/21 12/22/21 History nitroglycerin 0.4 mg sublingual 0.4 mg sublingual Q5M PRN Chest 10/30/20 12/22/21 Unknown History tablet (Nitrostat) Pain Prosacea 1 applic topical DAILY 11/24/20 12/22/21 12/22/21 History glimepiride 2 mg tablet 8 mg PO DAILY 06/16/21 12/22/21 12/22/21 History lovastatin 40 mg tablet 80 mg PO DAILY 06/16/21 12/22/21 12/22/21 History rivaroxaban 20 mg tablet (Xarelto) 20 mg PO DAILY 06/16/21 12/22/21 Unknown History hydralazine 25 mg tablet 25 mg PO TID #90 tabs 06/30/21 12/22/21 12/22/21 Rx metoprolol succinate 25 mg 25 mg PO DAILY #90 tabs 11/16/21 12/22/21 12/22/21 Rx tablet,extended release 24 hr warfarin 1 mg tablet 1 mg PO DAILY 12/22/21 12/22/21 12/22/21 History Allergies Allergy/AdvReac Type Severity Reaction Status Date / Time atorvastatin [From Lipitor] Allergy ALGY-Anaphy Verified 12/22/21 12:59 laxis PFSH Acute PFSH: Medical History Arthritis Atrial fibrillation CAD (coronary artery disease) of artery bypass graft Carotid bruit Chronic anticoagulation CKD (chronic kidney disease) Patient denies Fatigue Hx of type 2 diabetes mellitus Hyperlipidemia Hypertension Osteoporosis Rosacea TIA (transient ischemic attack) Surgical History History of parathyroidectomy Hx of cataract extraction Hx of hysterectomy Hx of salpingo-oophorectomy, bilateral S/P CABG x 4 Family History Sister Cancer CAD (coronary artery disease) Mother Diabetes CAD (coronary artery disease) Hypertension Stroke Cancer Dementia Denies family history of Clotting disorder Chronic kidney disease (CKD) Suicide Anesthesia complication Bleeding disorder Lung disease Social History Smoking and tobacco status: never smoked Alcohol intake: never Vitals/I&O/Wt Last Vital Signs Temp 97.9 F 12/22/21 12:01 Pulse 71 12/22/21 12:01 Resp 18 12/22/21 12:01 BP 172/121 12/22/21 12:01 Pulse Ox 92 12/22/21 12:01 O2 Del Method 12/22/21 12:01 Weight last 48 hrs Weight 75.024 kg Physical Exam Narrative: General: Alert oriented x1, patient seen laying in bed appearing comfortable at this time, no acute distress HEENT: Normocephalic, atraumatic, EOMI, breathing comfortably on room air Cardio: Irregularly irregular, normal S1-S2, Respiratory: Clear to auscultation bilaterally no wheezes no rhonchi GI: Abdomen soft, nontender, nondistended, bowel sounds + Extremities: Chronic right lower extremity edema present. Right leg larger than left leg. She has history of CABG. No skin rash or edema present. Neuro: Patient having trouble tracking finger however able to move her eyes voluntarily in all directions. No aphasia noted. Strength 4 out of 5 bilateral upper extremities, 3 out of 5 right lower extremity, 4/5 left lower extremity. Right lower extremity slightly weaker Symmetrical. Sensation intact. Pupils reactive to light. Bilateral outer superior quadrantanopsia, gait not tested. Did not understand [id number] test. Patient just stared at me. Follows most commands. At times when a question is asked, pt smiles at you. Data : 12/22/21 11:50 12/22/21 13:27 A&P Assessment and plan (1) Altered mental status: Status: Acute (2) Acute confusion: Status: Acute (3) Atrial fibrillation: Status: Acute (4) Chronic anticoagulation: Status: Acute (5) CKD (chronic kidney disease): Status: Acute (6) CAD (coronary artery disease) of artery bypass graft: Status: Acute Qualifiers: [place] vs. transplanted heart: [place] heart Associated angina: without angina Qualified Code(s): I25.810 - Atherosclerosis of coronary artery bypass graft(s) without angina pectoris (7) Hypertension: Status: Acute Qualifiers: Hypertension type: essential hypertension Qualified Code(s): I10 - Essential (primary) hypertension (8) TIA (transient ischemic attack): Status: Acute Plan #Confusion, incoherence, TIA? Stroke? Metabolic encephalopathy? #History of CABG #Atrial fibrillation, on warfarin chronically #Hypertension #Hyperlipidemia #Type 2 diabetes mellitus #Arthritis #Carotid bruit? #CKD, creatinine 1.2 at baseline ? Patient does have a history of TIA listed in the chart. Unsure of details however. She is confused. Urinalysis is negative. WBC 10.7. INR 1.27. Creatinine 1.2 at baseline -Check MRI brain without contrast ? Check carotid Dopplers, echo ? Patient is on clonidine, hydralazine, lisinopril, amlodipine at home for hypertension ? We will continue clonidine, amlodipine. I will hold hydralazine and amlodpine to allow for permissive hypertension. ? I will hold aspirin today. Patient is apparently on warfarin from medication reconciliation done by pharmacy. ? We will repeat head CT tomorrow. We will start aspirin in a.m. ? Patient is not on Xarelto as per home medication list. Earlier she had discussed with cardiology to stop it and switch to a cheaper medication as per cardiology note from before. I am unable to confirm medications with patient myself. We will try reaching out to her pharmacy as well. INR 1.27. Not supratherapeutic ? Creatinine 1.2 at baseline. Patient does have chronic kidney disease. We will avoid contrast unless he absolutely have to. -Continue to monitor blood pressure closely. Neurochecks every 2 hours ? We will discuss with Dr. Ruano for further instructions. -As per ER physician patient not a candidate for tPA at this time. ? Urinalysis negative. Check procalcitonin. Rule out metabolic etiology ? Insulin sliding scale ? Keep n.p.o. until bedside swallow evaluation. If required will get a formal swallow evaluation as well ? PT OT Full Code at bedside updated. I will also reach out to patient's son and update him as well. Attestations Medical Necessity Statement*: Patient will require greater than 24 to 48-hour stay for stroke/TIA work-up. 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 transplanted heart: [place] heart Associated angina: without angina Hypertension I10 Hypertension type: essential hypertension TIA (transient ischemic attack) G45.9
--- NOTE | 2021-12-22 17:30 | CTR_ITS ---
PROCEDURE INFORMATION: Exam: CTA Head With Contrast, Arteriography Exam date and time: 12/22/2021 5:51 PM Age: 81 years old Clinical indication: Dizziness and giddiness; Prior surgery; Surgery type: Parathyroid, cabg; Additional info: R/O stroke TECHNIQUE: Imaging protocol: Computed tomographic angiography of the head with contrast. Exam focused on the arteries. 3D rendering (Not supervised by radiologist): MIP and/or 3D reconstructed images were created by the technologist. Radiation optimization: All CT scans at this facility use at least one of these dose optimization techniques: automated exposure control; mA and/or kV adjustment per patient size (includes targeted exams where dose is matched to clinical indication); or iterative reconstruction. Contrast material: OMNI 350; Contrast volume: 95 ml; Contrast route: INTRAVENOUS (IV); COMPARISON: CT head wo con* [id number] 12/22/2021 11:51 AM RADIATION DOSE METRICS: Total DLP (mGy-cm): 971.02 FINDINGS: ANTERIOR CIRCULATION: Right internal carotid artery: Mild luminal narrowing of the intracranial segment which remains patent with no severe stenosis. No aneurysm. Right middle cerebral artery: No occlusion or significant stenosis. No aneurysm. Right anterior cerebral artery: No occlusion or significant stenosis. No aneurysm. Left internal carotid artery: Mild luminal narrowing of the intracranial segment which remains patent with no severe stenosis. No aneurysm. Left middle cerebral artery: No occlusion or significant stenosis. No aneurysm. Left anterior cerebral artery: No occlusion or significant stenosis. No aneurysm. POSTERIOR CIRCULATION: Right vertebral artery: No occlusion or significant stenosis. Variant anatomy with termination of the right vertebral artery at the posteroinferior cerebellar artery. No aneurysm. Left vertebral artery: Focal area of severe stenosis within the left vertebral artery proximal to the basilar artery as seen on series 9, image 199. Basilar artery: No occlusion or significant stenosis. No aneurysm. Right posterior cerebral artery: No occlusion or significant stenosis. No aneurysm. Left posterior cerebral artery: No occlusion or significant stenosis. No aneurysm. Brain: No intracranial hemorrhage. No edema. There is focal encephalomalacia from an old infarct in the left occipital lobe. Mild diffuse cerebral atrophy and sequela of chronic small vessel ischemic disease. No mass effect. Cerebral ventricles: No ventriculomegaly. Bones/joints: Unremarkable. No acute fracture. Soft tissues: Unremarkable. PROCEDURE INFORMATION: Exam: CTA Neck With Contrast Exam date and time: 12/22/2021 5:51 PM Age: 81 years old Clinical indication: Dizziness and giddiness; Prior surgery; Surgery type: Parathyroid, cabg; Additional info: R/O stroke TECHNIQUE: Imaging protocol: Computed tomographic angiography of the neck with contrast. 3D rendering (Not supervised by radiologist): MIP and/or 3D reconstructed images were created by the technologist. Radiation optimization: All CT scans at this facility use at least one of these dose optimization techniques: automated exposure control; mA and/or kV adjustment per patient size (includes targeted exams where dose is matched to clinical indication); or iterative reconstruction. Contrast material: OMNI 350; Contrast volume: 95 ml; Contrast route: INTRAVENOUS (IV); COMPARISON: CT head wo con* [id number] 12/22/2021 11:51 AM RADIATION DOSE METRICS: Total DLP (mGy-cm): 971.02 FINDINGS: Right common carotid artery: Mild stenosis at the common carotid bulb with less than 50% luminal narrowing. No dissection or occlusion. Right internal carotid artery: Mild stenosis at the origin of the right internal carotid artery with less than 50% luminal narrowing. No dissection or occlusion. Right external carotid artery: No occlusion or stenosis of the origin. Left common carotid artery: Moderate stenosis with an estimated 50% luminal narrowing at the carotid bulb. No dissection or occlusion. Left internal carotid artery: Mild stenosis at the origin of the left internal carotid artery with less than 50% luminal narrowing. No dissection or occlusion. Left external carotid artery: No occlusion or stenosis of the origin. Right vertebral artery: No stenosis. No dissection or occlusion. Left vertebral artery: No stenosis. No dissection or occlusion. Soft tissues: Normal. No significant soft tissue swelling. Bones/joints: No acute fracture. CT/CT angio headneck* [id number] IMPRESSION: 1. Focal area of severe stenosis in the left vertebral artery proximal to the basilar artery. This has greater significance as the primary blood supply of the posterior circulation given variant anatomy with termination of the right vertebral artery at the posterior inferior cerebellar artery. No additional areas of severe stenosis or occlusion. 2. Old infarct noted in the left occipital lobe. IMPRESSION: Moderate stenosis at the left common carotid bulb. Mild stenosis of the origins of the internal carotid arteries and right common carotid bulb. No occlusion. REFERENCES: NASCET CRITERIA. The degree of stenosis in the cervical segment of the internal carotid artery is based on NASCET criteria. Normal is no stenosis. Mild is less than 50% stenosis. Moderate is 50-69% stenosis. Severe is 70% to 99% stenosis. Total occlusion is no detectable patent lumen.
[2021-12-22 17:46] LABS: Estmated Average Glucose 214; Hemoglobin A1C 9.1 % (4.0-6.0)
[2021-12-22 18:02] LABS: Thyroid Stimulating Hormone 3.14 uIU/mL (0.27-4.20)
[2021-12-22 18:03] LABS: Procalcitonin 0.07 ng/mL (0-0.5)
[2021-12-22 19:46] LABS: Troponin 5 6HR 13.52 ng/L (0-10)
[2021-12-22 19:48] LABS: Troponin 5 6HR Delta 1.52 ng/L (0-12)
[2021-12-22] MEDS: sodium chloride 0.9% 1,000 ML 75 ML IV (20:51)
[2021-12-22] MEDS: hyDRALAzine 25 mg Tablet PO (22:15)
[2021-12-23] VITALS (10 sets, daily range): BP systolic 137–178; BP diastolic 79–96; PULSE 65–91; RESP 14–18; TEMP 36.6–36.8; O2SAT 91–92
[2021-12-23 04:53] LABS: Basophils # 0.1 10^3/uL (0.0-0.1); Basophils % 0.7 %; Eosinophils # 0.3 10^3/uL (0.0-0.8); Eosinophils % 3.1 %; Hematocrit 49.7 % (37.0-47.0); Hemoglobin 15.9 g/dL (11.5-15.3); Lymphocytes # 2.2 10^3/uL (0.8-4.8); Lymphocytes % 23.5 %; Mean Corpuscular Hemoglobin 29.2 pg (28.0-34.0); Mean Corpuscular Volume 91.2 fl (81-99); Mean Platelet Volume 10.7 fL (7.4-10.4); Monocytes # 0.7 10^3/uL (0.2-0.9); Monocytes % 7.1 %; Neutrophils # 6.18 10^3/uL (1.8-7.7); Neutrophils % 65.3 %; Nucleated Red Blood Cells % 0 %; Platelet Count 312 10^3/cmm (130-400); Red Blood Count 5.45 10^6/uL (4.1-5.3); Red Cell Distribution Width 14.8 % (12.1-15.1); White Blood Count 9.5 10^3/uL (4.0-10.0)
[2021-12-23 05:03] LABS: INR 1.33 (0.8-1.2)
[2021-12-23 05:12] LABS: Alanine Aminotransferase 12 U/L (0-33); Albumin Level 3.8 g/dL (3.5-5.2); Alkaline Phosphatase 88 U/L (35-105); Aspartate Amino Transferase 18 U/L (0-32); Blood Urea Nitrogen 12 mg/dL (8-23); Calcium 9.9 mg/dL (8.5-10.5); Carbon Dioxide 24 mmol/L (22-29); Chloride 103 mmol/L (98-107); Globulin 3.5 g/dL (1.3-4.6); Glucose 113 mg/dL (65-115); Magnesium 1.6 mg/dL (1.7-2.3); Osmolality Calculated 291 mOsm/kg (285-295); Sodium 140 mmol/L (136-145); Total Bilirubin 0.6 mg/dL (0.15-1.2); Total Protein 7.3 g/dL (6.6-8.7)
[2021-12-23 05:22] LABS: Anion Gap 16.7 (5-19); Potassium 3.7 mmol/L (3.5-5.1)
[2021-12-23 08:00] LABS: Glucose Point of Care 133 mg/dL (70-110)
[2021-12-23] MEDS: metoprolol succinate ER (24 HR) 25 mg Tablet PO (08:48)
[2021-12-23] MEDS: hyDRALAzine 25 mg Tablet PO (08:48)
[2021-12-23] MEDS: isosorbide mononitrate ER 60 mg Tablet 120 MG PO (08:48)
[2021-12-23] MEDS: allopurinol 100 mg Tablet PO (08:48)
[2021-12-23] MEDS: amlodipine 10 mg Tablet PO (08:48)
[2021-12-23] MEDS: sodium chloride 0.9% 1,000 ML 75 ML IV (08:49)
--- NOTE | 2021-12-23 10:00 | PC.CHAP ---
Pastoral Care Encounter/Spiritual Assessment Type of Contact [] Declined barrel cutter visit [] Patient/Family/Request visit [] Outpatient visit [] Follow-up visit [] Physician referral [] Code/Alert [] Routine visit [x] Staff referral [] Actively dying [] Patient sleeping [] Family support [] [] Out of room [] Palliative care [] [x] Receiving care in room [] Pre-surgical visit [] Trauma [x] Long length of stay [] ICU visit [] Other: Relational/Emotional Strength [x] Patient feels connected with others/family/visitors/staff [] Distress [] Loneliness/isolation [] Abandonment Spirituality of Patient [x] Person of Zoila [] Attends Uatsdin of their [place] [x] Believes in Prayer [] Reads Bible or Christianity materials [] There are Spiritual issues to be addressed [employer] Deposit Boxes Custodian Interventions [x] Prayer [x] Active listening [x] Non-anxious presence [x] Spiritual/emotional support [] Crisis/trauma care [x] Spiritual counseling [] Bereavement support [] Provided bereavement packet [] Provided Bible/devotional materials [] Provided toy/stuffed animal, coloring book to patient or family member [] Provided Communion [] Anointing/Glady [] Salvation [x] Completed spiritual assessment [] Other: Impact on Illness or Injury [] Angry [] Fearful [x] Anxious [] Often cries [] Exhaustion [x] Unable to work [] Unable to attend uatsdin [] Unable to walk/stand [] Unable to read [] Unable to drive [] Unable to eat/drink [] Unable to sleep [] Unable to be with family [] Patient intubated [] Other: Summary senior doesn't not able to communicate about her health has a good attitude Time spent with patient 10 mins
[2021-12-23 11:14] LABS: Glucose Point of Care 263 mg/dL (70-110)
--- NOTE | 2021-12-23 12:55 | PM.DCS ---
Discharge Providers Date of Admission: 12/22/21 18:28 Date of Discharge: December 23, 2021 Attending Provider at Admission: George Johnston Attending Provider at Discharge: Ai Coronel MD Primary Care Provider: Sheela Rodriguez MD Reason for Visit Reason for Visit: Stroke Alert Brief History: Lizzie Coughlin is a 81 year old female with past medical history of atrial fibrillation on warfarin, coronary artery disease, CKD, hypertension, hyperlipidemia, type 2 diabetes mellitus, TIA presents to the emergency room for evaluation for acute confusion and possible strokelike symptoms.? 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 Subsequently code stroke was called.? Around 1045 this AM.? Patient was speaking to her son on the phone and was noted to be confused and incoherent.? Patient's states that she was normal up until this morning.? Due to concerns of healthcare staff code stroke was called.? Possible right facial droop was also noted.? On arrival to ER patient had confusion and was only able to answer 1 question correctly.? There was no speech difficulty and no findings of expressive or receptive aphasia.? She did not have a facial droop at that time either.? Patient denies chest pain, shortness of breath, focal weakness in arms or legs, diplopia, diarrhea, melena, medic easier palpitations at that time.? The above history is obtained by ER note.? In the ER NIH H physical to 1.? CT head done which showed no acute intracranial hemorrhage or edema.? 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 Cerebral atrophy and small vessel ischemic disease.? Remote lacunar infarction left thalamus and right basal ganglia.? Severe atherosclerosis intracranial vertebral and carotid arteries.? ER physician stated that patient is not a candidate for tPA after he discussed the case with on-call neurologist.? She will need to be admitted for stroke/TIA work-up.? Case was discussed with neurology on-call who recommended admission for stroke work-up. When I saw the patient patient did not have any neurological deficits but was slightly confused.? She was able to answer questions but seem to be confused at times.? She thought it was a year 1923 but knew her birthdate and her name.? Patient stated that she was currently in [facility].? Patient is a poor historian and unable to give me much details at this time.? present at bedside.? He also stated that patient is a little more confused than her normal self. Hospital Course Hospital Course Patient was admitted with strokelike symptoms. Neurologist on-call was called. She was examined by Dr. Rauno at bedside in my presence at which point she did not have any symptoms. She could repeat words that were sent to her. Cranial nerves were intact, gait was normal with slight unsteadiness which she states is chronic for her. She was able to track her head with her eyes. Speech was not garbled. She was not confused. Daughter was present at bedside. CTA was done of the head and neck which showed focal area of severe stenosis and left vertebral artery proximal to basilar artery. This is greater significant signs of primary blood supply the posterior circulation given. IV with termination of right vertebral artery at posterior inferior cerebellar artery. Old infarct noted in left occipital lobe. Moderate stenosis of left common carotid bulb. No acute occlusion. Discussed results with Dr. Ruano. It was decided to hold off on MRI for now as patient is asymptomatic. Plan was to discharge patient on aspirin and warfarin. She was also seen by Occupational Therapy who stated that she had memory problems. Dr. Ruano suggested to have patient follow-up with her in her clinic after discharge. I called patient's primary care doctor Dr. Amador and discussed all of the above with her. Her hemoglobin A1c was also 9.1. Patient is on glimepiride 8 mg daily at home. Also without clonidine her blood pressure was stable therefore it was held. Dr. Rodriguez told me that patient is somewhat noncompliant to her medications. Patient was placed on warfarin 5 mg outpatient which took her INR up to 18. Therefore it was stopped and changed to warfarin 1 mg a day. On admission INR was 1.27. Dr. Rodriguez will be following up with the patient in regards to her INR, addressing hemoglobin A1c of 9.1 and blood pressure management. She stated that there was probably a reason why patient was not on metformin. Patient was to follow-up with neurology, primary care doctor within 4 to 7 days of discharge. I discussed findings of CTA with her PCP as well who stated that she will refer her to vascular surgery as an outpatient. At time of discharge patient was completely asymptomatic. was present at bedside. I discussed all of the above with patient's daughter over the phone and patient's was at bedside. Her daughter requested home health for which case management referral was placed. Patient was discharged home in stable condition to follow-up with primary care doctor. All questions answered. Physical Exam Narrative: General: Alert oriented x3, seen sitting up in chair appearing happy and smiling. HEENT: Normocephalic, atraumatic, EOMI, breathing comfortably on room air Cardio: Irregularly irregular, normal S1-S2, Respiratory: Clear to auscultation bilaterally no wheezes no rhonchi GI: Abdomen soft, nontender, nondistended, bowel sounds + Extremities: Chronic right lower extremity edema present.? Right leg larger than left leg.? She has history of CABG. No skin rash or edema present. Neuro: Cranial nerves II to XII intact. No aphasia. Strength 4 out of 5 bilateral upper extremities, 3 out of 5 right lower extremity, 4 out of 5 left lower extremity. PERRLA. Peripheral vision slightly impaired. Gait normal. Basxps-vm-cijo normal. Follows all commands. Able to track head movement. But does not follow finger. Memory recall impaired. Unable to repeat 3 words said to her. Discharge Data Studies Completed and Pending Completed Studies During Hospitalization Category Date Time Status CT angio head neck [CT angio headneck* [id number]] Cat Scan 12/22/21 17:[address] head wo con* [id number] Stat Cat Scan 12/22/21 11:46 Completed XR chest 1V portable [id number] Stat Exams 12/22/21 13:03 Completed Pending at discharge Category Date Time Status UA w/Reflex to Microscope [Urinalysis] Stat Lab 12/22/21 13:37 Ordered Radiology Impressions Head CT 12/22/21 11:46 IMPRESSION: 1. No acute intracranial hemorrhage or edema. 2. 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 3. Cerebral atrophy and small vessel ischemic disease. Remote lacunar infarcts in the LEFT thalamus and RIGHT basal ganglia. 4. 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 Notified Cecilia Orellana MD at 12/22/2021 12:10 PM. Report given to Jeaneth patient's nurse. Chest X-Ray 12/22/21 13:03 IMPRESSION: Cardiomegaly. No acute chest abnormality. Head/Neck CTA 12/22/21 17:30 IMPRESSION: 1. Focal area of severe stenosis in the left vertebral artery proximal to the basilar artery. This has greater significance as the primary blood supply of the posterior circulation given variant anatomy with termination of the right vertebral artery at the posterior inferior cerebellar artery. No additional areas of severe stenosis or occlusion. 2. Old infarct noted in the left occipital lobe. IMPRESSION: Moderate stenosis at the left common carotid bulb. Mild stenosis of the origins of the internal carotid arteries and right common carotid bulb. No occlusion. REFERENCES: NASCET CRITERIA. The degree of stenosis in the cervical segment of the internal carotid artery is based on NASCET criteria. Normal is no stenosis. Mild is less than 50% stenosis. Moderate is 50-69% stenosis. Severe is 70% to 99% stenosis. Total occlusion is no detectable patent lumen. Laboratory Results WBC 9.5 10^3/uL (4.0-10.0) 12/23/21 03:31 RBC 5.45 10^6/uL (4.1-5.3) H 12/23/21 03:31 Hgb 15.9 g/dL (11.5-15.3) H 12/23/21 03:31 Hct 49.7 % (37.0-47.0) H 12/23/21 03:31 MCV 91.2 fl (81-99) 12/23/21 03:31 MCH 29.2 pg (28.0-34.0) 12/23/21 03:31 MCHC 32.0 g/dL (30.0-36.0) 12/23/21 03:31 RDW 14.8 % (12.1-15.1) 12/23/21 03:31 Plt Count 312 10^3/cmm (130-400) 12/23/21 03:31 MPV 10.7 fL (7.4-10.4) H 12/23/21 03:31 Neut % (Auto) 65.3 % 12/23/21 03:31 Lymph % (Auto) 23.5 % 12/23/21 03:31 [place] % (Auto) 7.1 % 12/23/21 03:31 Eos % (Auto) 3.1 % 12/23/21 03:31 Baso % (Auto) 0.7 % 12/23/21 03:31 Neut # (Auto) 6.18 10^3/uL (1.8-7.7) 12/23/21 03:31 Lymph # (Auto) 2.2 10^3/uL (0.8-4.8) 12/23/21 03:31 [place] # (Auto) 0.7 10^3/uL (0.2-0.9) 12/23/21 03:31 Eos # (Auto) 0.3 10^3/uL (0.0-0.8) 12/23/21 03:31 Baso # (Auto) 0.1 10^3/uL (0.0-0.1) 12/23/21 03:31 Nucleated RBC % (auto) 0 % 12/23/21 03:31 Nucleated RBCs # 0.0 /100WBC 12/23/21 03:31 PT 16.80 SECONDS (12.1-14.9) H 12/23/21 03:31 INR 1.33 (0.8-1.2) H 12/23/21 03:31 APTT 30.3 SECONDS (23.9-36.7) 12/22/21 11:50 Sodium 140 mmol/L (136-145) 12/23/21 03:31 Potassium 3.7 mmol/L (3.5-5.1) 12/23/21 03:31 Chloride 103 mmol/L (98-107) 12/23/21 03:31 Carbon Dioxide 24 mmol/L (22-29) 12/23/21 03:31 Anion Gap 16.7 (5-19) 12/23/21 03:31 BUN 12 mg/dL (8-23) 12/23/21 03:31 Creatinine 1.0 mg/dL (0.5-0.9) H 12/23/21 03:31 GFR Calculation Not Reportable 12/23/21 03:31 Glucose 113 mg/dL (65-115) 12/23/21 03:31 POC Glucose 263 mg/dL (70-110) H 12/23/21 10:57 Estimat Average Glucose 214 12/22/21 11:50 Hemoglobin A1c 9.1 % (4.0-6.0) H 12/22/21 11:50 Calculated Osmolality 291 mOsm/kg (285-295) 12/23/21 03:31 Calcium 9.9 mg/dL (8.5-10.5) 12/23/21 03:31 Magnesium 1.6 mg/dL (1.7-2.3) L 12/23/21 03:31 Total Bilirubin 0.6 mg/dL (0.15-1.2) 12/23/21 03:31 AST 18 U/L (0-32) 12/23/21 03:31 ALT 12 U/L (0-33) 12/23/21 03:31 Alkaline Phosphatase 88 U/L (35-105) 12/23/21 03:31 Troponin T Baseline 12 ng/L (0-10) H 12/22/21 12:38 Troponin T 120 Minute 12.96 ng/L (0-10) H 12/22/21 15:06 Delta Troponin T 0.96 ABS# (0-10) 12/22/21 15:06 Troponin T Hi Sens 6Hr 13.52 ng/L (0-10) H 12/22/21 19:21 Troponin T Hi Sens 6Hr Delta 1.52 ng/L (0-12) 12/22/21 19:21 Total Protein 7.3 g/dL (6.6-8.7) 12/23/21 03:31 Albumin 3.8 g/dL (3.5-5.2) 12/23/21 03:31 Globulin 3.5 g/dL (1.3-4.6) 12/23/21 03:31 Procalcitonin 0.07 ng/mL (0-0.5) 12/22/21 15:06 TSH 3.14 uIU/mL (0.27-4.20) 12/22/21 15:06 Urine Color Yellow (Yellow) 12/22/21 14: Urine Appearance Clear (CLEAR) 12/22/21 14: Urine pH 5 (5-7) 12/22/21 14: Ur Specific [place] 1.015 (1.005-1.030) 12/22/21 14: Urine Protein Neg (Negative) 12/22/21 14: Urine Glucose (UA) Norm (Normal) 12/22/21 14: Urine Ketones Negative (Negative) 12/22/21 14:27 Urine Blood Neg (Negative) 12/22/21 14:27 Urine Nitrate Negative (Negative) 12/22/21 14:27 Urine Bilirubin Neg (Negative) 12/22/21 14:27 Urine Urobilinogen Norm mg/dL (Negative) 12/22/21 14:27 Ur Leukocyte Esterase Negative (Negative) 12/22/21 14:27 Vitals Last Vital Signs Temp 97.9 F 12/23/21 12:00 Pulse 91 12/23/21 12:00 Resp 18 12/23/21 12:00 BP 137/80 12/23/21 12:00 Pulse Ox 92 12/23/21 11:51 O2 Del Method 12/23/21 11:51 Discharge Plan Discharge Patient Disposition: Home Health Service Condition: Stable Prescriptions: Continued Prosacea 1 applic topical DAILY allopurinol 100 mg tablet 100 mg PO DAILY amlodipine 10 mg tablet 10 mg PO DAILY aspirin [Adult Aspirin Regimen] 81 mg tablet,delayed release (DR/EC) 81 mg PO DAILY isosorbide mononitrate 120 mg tablet extended release 24 hr 120 mg PO DAILY lisinopril 10 mg tablet 20 mg PO DAILY nitroglycerin [Nitrostat] 0.4 mg tablet, sublingual 0.4 mg sublingual Q5M PRN (Reason: Chest Pain) Rx Instructions: do not exceed 3 doses per episode glimepiride 2 mg tablet 8 mg PO DAILY lovastatin 40 mg tablet 80 mg PO DAILY hydralazine 25 mg tablet 25 mg PO TID Qty: 90 6RF metoprolol succinate 25 mg tablet extended release 24 hr 25 mg PO DAILY Qty: 90 3RF warfarin 1 mg tablet 1 mg PO DAILY Held clonidine HCl 0.3 mg tablet 0.3 mg PO DAILY Hold Instructions: see pcp Discontinued Xarelto 20 mg tablet 20 mg PO DAILY Discharge Orders: Discharge Order (Routine); Ordered 12/23/21 Ordered By: Ai Coronel Other Ambulatory Orders: Basic Metabolic Panel (Routine) Timeframe: 3 Days Facility: [facility] - Location: Lab - Main Lab Ordered By: Ai Coronel Referrals: [facility] ([facility]) [Outside] Ericka Ruano MD [Physician] - 01/10/22 12:00 pm Sheela Rodriguez MD [Primary Care Provider] - 12/30/21 11:00 am Discharge Diet: Cardiac, Diabetic and Low Salt Discharge Activity: Increase activity as tolerated Patient Instructions: Stroke (GEN), Opioid Safety, Stroke Stoplight Activity Restrictions/Additional Instructions: Please follow-up with the neurologist Dr. Ruano within a week of discharge. Please also follow up with Dr. Rodriguez within 4-7 days of discharge. Your hemoglobin A1c level was 9.1. Your blood sugar is not controlled. Your primary care doctor will adjust your medications. She will also provide referral to vascular surgery for you. I will copy results of your scans done in the hospital to your PCP. I discussed your care with your PCP at discharge. Please follow up with her as soon as possible. Return to ER should you have any symptoms as discussed with your daughter and as well. Discharge Attestations Time Spent in Discharge Care*: greater than 30 min Quality Metrics Clinical Quality Measures [ No reported AMI, CVA or VTE this stay] Coding Level of Care Code Acute Chg FW DC note
[2021-12-23] MEDS: warfarin 2 mg Tablet 1 MG PO (13:12)
[2021-12-23] MEDS: insulin lispro 100 unit/1 mL SUBCUT (13:12)
[2021-12-23 15:40] LABS: Urine Color Yellow (Yellow)
[2021-12-23 15:41] LABS: Add Urine Microscopic? YES; Bilirubin Urine 1+ (Negative); Blood Urine Neg (Negative); Glucose Urine UA Trace (Normal); Ketones Urine 1+ (Negative); Leukocyte Esterase Urine Trace (Negative); Nitrate Urine Negative (Negative); Protein Urine 3+ (Negative); Specific Gravity, Urine 1.015 (1.005-1.030); Urine Appearance Hazy (CLEAR); Urobilinogen Urine 1 mg/dL (Negative); pH Urine 5 (5-7)
[2021-12-23 15:43] LABS: RBC Urine RARE /hpf (0-2)
[2021-12-23 15:44] LABS: Add Urine Culture? No; Bacteria Urine 2+ /hpf; Hyaline Casts Urine 0-4 /lpf; Mucus Urine TRACE /hpf
[2021-12-23 15:59] LABS: Glucose Point of Care 167 mg/dL (70-110)
== END 2021-12-23 17:06 | disposition home health service (06) ==
LOC: ER 13:42 → MEDSURG 17:34
PROVIDERS: Admitting Provider Internal Medicine; Emergency Provider Emergency Medicine; PCP Family Medicine; Visit Provider Internal Medicine
DX: R41.0 Disorientation, unspecified (principal); I65.22 Occlusion and stenosis of left carotid artery; I48.91 Unspecified atrial fibrillation; I25.810 Atherosclerosis of coronary artery bypass graft(s) without angina pectoris; I12.9 Hypertensive chronic kidney disease with stage 1 through stage 4 chronic kidney disease, or unspecified chronic kidney disease; N18.9 Chronic kidney disease, unspecified; E11.22 Type 2 diabetes mellitus with diabetic chronic kidney disease; E78.5 Hyperlipidemia, unspecified; Z79.01 Long term (current) use of anticoagulants; Z79.82 Long term (current) use of aspirin; Z86.73 Personal history of transient ischemic attack (TIA), and cerebral infarction without residual deficits; Z95.1 Presence of aortocoronary bypass graft; Z82.3 Family history of stroke
CPT/HCPCS: 36415; 36416; 70450; 70496; 70498; 71045; 80053; 81001; 81003; 82962; 83036; 83735; 84145; 84443; 84484; 85025; 85610; 85730; 93005; 96372; 97116; 97161; 97165; 99285; G0378; J1815; J7030; Q9967

== ENCOUNTER 2021-12-23 20:45 | Inpatient (IN) | payer MEDICARE, OTHER, SELFPAY ==
--- NOTE | 2021-12-23 21:01 | W.ED.NEUROSD ---
HPI - Neuro Symptoms/Deficit General: Chief Complaint: Weakness Stated Complaint: Possible CVA Time Seen by Provider: 12/23/21 21:01 Limitations: altered mental status History of Present Illness: Ms. Coughlin is a 81-year-old lady with history of atrial fibrillation, CKD, CAD, hypertension, and recent hospitalization for acute confusion possible TIA type episode presenting to the emergency department for recurrent confusion and neurologic symptoms. Apparently she ambulated from the hospital but discharged today however by the time she got home was generally weak and unable to get out of the car without significant assistance. Additionally there was possible associated facial droop though this has improved. Patient is confused and provides limited history. Denies headaches or numbness and tingling. Intensity of symptoms appears to wax and wane and at worst is moderate to severe. No other specific changes in health, exacerbating, or alleviating factors identified. Onset (ago): hour(s) Location: right face and altered History of same: Yes Severity: moderate Relieving factors: none Exacerbating factors: none Context: sudden onset and other On Anticoagulants: Yes Review of Systems General: Reports: ROS unobtainable due to mental status PFSH ED PFSH: Medical History Arthritis Atrial fibrillation CAD (coronary artery disease) of artery bypass graft Carotid bruit Chronic anticoagulation CKD (chronic kidney disease) Patient denies Fatigue Hx of type 2 diabetes mellitus Hyperlipidemia Hypertension Osteoporosis Rosacea TIA (transient ischemic attack) Surgical History History of parathyroidectomy Hx of cataract extraction Hx of hysterectomy Hx of salpingo-oophorectomy, bilateral S/P CABG x 4 Family History Sister Cancer CAD (coronary artery disease) Mother Diabetes CAD (coronary artery disease) Hypertension Stroke Cancer Dementia Denies family history of Clotting disorder Chronic kidney disease (CKD) Suicide Anesthesia complication Bleeding disorder Lung disease Social History Smoking and tobacco status: never smoked Alcohol intake: never Physical Exam Const: COMMON NORMALS: alert GENERAL APPEARANCE: cooperative and well developed HENMT: COMMON NORMALS: normocephalic and atraumatic HEAD & SCALP: normocephalic and atraumatic THROAT: posterior oropharynx normal Eye: COMMON NORMALS: conjunctivae normal CONJUNCTIVA: Yes conjunctivae normal SCLERA: sclerae normal Neck/C-Spine: COMMON NORMALS: supple GENERAL: Yes trachea midline Resp: COMMON NORMALS: normal respiratory effort EFFORT & INSPECTION: Yes able to speak in complete sentences Cardio: COMMON NORMALS: regular rate and regular rhythm RATE: regular rate RHYTHM: regular rhythm GI: COMMON NORMALS: Soft to palpation PALPATION: Yes Soft to palpation and No Tenderness to palpation present (GI) PERCUSSION: normal to percussion Extremity: GENERAL: Yes normal exam except as noted and Yes edema (Right lower extremity 3+ edema reportedly chronic with history of CABG/vein) Neuro: COMMON NORMALS: CN's II-XII intact bilaterally, moves all extremities, no focal motor deficits and no sensory deficits noted SENSORIUM/ORIENTATION: Yes alert and Yes Orientation impaired OTHER: Exam limitations with parent to be difficulty comprehending instructions as opposed to completing activities. Psych: COMMON NORMALS: mental status grossly normal and Normal thought process present THOUGHT PROCESS: Normal thought process present Course ED course: - Patient was seen and evaluated by me at bedside - Patient placed on cardiac monitors, IV access obtained - Initial evaluation notable for exam as above. Limited neuro exam secondary to patient understanding. - Labs and xrays personally interpreted by me. EKG shows atrial fibrillation with nonspecific ST segment abnormalities. No STEMI. -Fluids given. Patient is not a tPA candidate. - Labs notable for minimal leukocytosis, normal hemoglobin. Metabolic panel with elevated creatinine compared to this morning and mild evidence of dehydration. Delta troponin is negative. BNP is somewhat elevated. No UTI given squamous epithelial contamination and absence of symptoms. - Imaging notable for no lobar consolidation or pneumothorax on chest x-ray. CT head without evidence of acute hemorrhage or mass-effect. - Upon serial reexamination after treatment the patient was similar - Based on patient history, evaluation, and testing as interpreted the most likely cause of the patient's condition is stroke - The results of ED evaluation were discussed with the patient including plan for admission due to requirement for level of care not available if discharged to prevent significant worsening/deterioration. - Admitting service was contacted and Dr Allen with the hospitalist service agreed to admit the patient - Patient was admitted without further deterioration or significant events. Note: Click bubbles or prepopulated nichole in note writing are used for assistance with data collection and billing and are inherently more limited than narrative and other text portions of this note. Please use narrative for additional clinical history and defer to narrative/free test for any case of contradictory information. If information appears in only free text or click bubble it should be considered present or absent as reported. Please contact note senior copywriter for clarifications of clinical information or contradictory information. MDM is a brief summary, contradictory or erroneous seeming information should be clarified and full note should be reviewed. Vital Signs: Vital signs: Vital Signs Temperature 98.2 F 12/29/21 07:48 Pulse Rate 67 12/29/21 14:33 Respiratory Rate 18 12/29/21 14:33 Blood Pressure 152/72 12/29/21 14:33 Pulse Oximetry 93 12/29/21 14:33 Oxygen Delivery Me thod 12/29/21 11:18 Oxygen Flow Rate 1 12/29/21 11:18 MDM - Neuro Symptoms/Deficit Medical Decision Making 81-year-old lady presenting with recurrence of strokelike symptoms. Patient is not a tPA candidate based on clinical history. No clear etiology identified on ED evaluation. Admitted for further management. Medical Records I reviewed the patient's medical records. Lab Data I reviewed the patient's lab results. : 12/28/21 05:45 12/28/21 05:45 Radiology Impressions Head MRI 12/24/21 01:52 IMPRESSION: 1. Acute ischemia involving the LEFT parasagittal frontal lobe in the JOHANNY territory along the LEFT frontal horn extending posteriorly into the LEFT parasagittal deep frontal white matter. Largest areas of ischemia measures approximately 1.6 x 1.8 cm and 2.7 x 1.4 cm 2. Mild associated edema. No significant mass effect or midline shift. 3. Moderate to advanced small vessel changes with moderate parenchymal volume loss. 4. Small vessel changes in the gulshan. 5. Tiny chronic lacunar infarct LEFT thalamus. 6. Mild mucosal thickening in the ethmoid air cells. Notified Ai Coronel MD at 12/24/2021 12:[address] 12/26/21 13:21 IMPRESSION: 1. No acute intracranial hemorrhage or midline shift. 2. As before, there are changes compatible with subacute infarcts involving the genu and anterior body of the left corpus callosum, and adjacent frontal lobe. 3. No definite new/acute acute infarct in the interval by CT, see above. 4. Changes of microvascular disease. 5. Other findings discussed above. Chest X-Ray 12/28/21 07:42 IMPRESSION: No acute abnormality. Foot X-Ray 12/29/21 09:20 IMPRESSION: No acute fracture or malalignment. Tibia/Fibula X-Ray 12/29/21 09:20 IMPRESSION: No acute fracture or malalignment. Laboratory Results WBC 11.8 10^3/uL (4.0-10.0) H 12/23/21: RBC 5.25 10^6/uL (4.1-5.3) 12/23/21: Hgb 15.3 g/dL (11.5-15.3) 12/23/21: Hct 47.6 % (37.0-47.0) H 12/23/21: MCV 90.7 fl (81-99) 12/23/21: MCH 29.1 pg (28.0-34.0) 12/23/21: MCHC 32.1 g/dL (30.0-36.0) 12/23/21: RDW 14.9 % (12.1-15.1) 12/23/21: Plt Count 355 10^3/cmm (130-400) 12/23/21: MPV 10.4 fL (7.4-10.4) 12/23/21: Neut % (Auto) 72.3 % 12/23/21: Lymph % (Auto) 18.9 % 12/23/21: [place] % (Auto) 7.4 % 12/23/21: Eos % (Auto) 0.7 % 12/23/21: Baso % (Auto) 0.4 % 12/23/21: Neut # (Auto) 8.50 10^3/uL (1.8-7.7) H 12/23/21: Lymph # (Auto) 2.2 10^3/uL (0.8-4.8) 12/23/21: [place] # (Auto) 0.9 10^3/uL (0.2-0.9) 12/23/21: Eos # (Auto) 0.1 10^3/uL (0.0-0.8) 12/23/21 22: Baso # (Auto) 0.1 10^3/uL (0.0-0.1) 12/23/21: Nucleated RBC % (auto) 0 % 12/23/21 22: Nucleated RBCs # 0.0 /100WBC 12/23/21 22: PT 17.70 SECONDS (12.1-14.9) H 12/23/21 22: INR 1.43 (0.8-1.2) H 12/23/21 22: Specimen Type Arterial 12/23/21 23: Sample Site Radial, left 12/23/21: ABG pH 7.43 (7.35-7.45) 12/23/21: ABG pCO2 36.0 mmHg (35-45) 12/23/21: ABG pO2 67.4 mmHg (80.0-100.0) L 12/23/21: ABG HCO3 23.6 mmol/L (22-26) 12/23/21 23: ABG Base Excess -0.4 mmol/L (-2.0-2.0) 12/23/21: Spencer Test Pos 12/23/21 23: Hematocrit 46.9 % (37-47) 12/23/21 23: O2 Delivery Device Nc 12/23/21 23: O2 Liters/Min 2.0 % 12/23/21 23: Slicing Machine Operator/Tender ID Benoit 12/23/21 23: Sodium 139 mmol/L (136-145) 12/23/21 22: Potassium 4.3 mmol/L (3.5-5.1) 12/23/21 22: Chloride 103 mmol/L (98-107) 12/23/21 22: Carbon Dioxide 21 mmol/L (22-29) L 12/23/21 22: Anion Gap 19.3 (5-19) H 12/23/21 22: BUN 24 mg/dL (8-23) H 12/23/21 22:28 Creatinine 1.7 mg/dL (0.5-0.9) H 12/23/21 22: GFR Calculation Not Reportable 09/15/22 22:28 Glucose 179 mg/dL (65-115) H 12/23/21 22:28 POC Glucose 148 mg/dL (70-110) H 12/24/21 06:34 Calculated Osmolality 297 mOsm/kg (285-295) H 12/23/21 22: Lactate 1.0 mmol/L (0.5-2.2) 12/23/21 22: Calcium 9.5 mg/dL (8.5-10.5) 12/23/21: Total Bilirubin 0.4 mg/dL (0.15-1.2) 12/23/21 22: AST 17 U/L (0-32) 12/23/21: ALT 10 U/L (0-33) 12/23/21: Alkaline Phosphatase 86 U/L (35-105) 12/23/21 22: Troponin T Baseline 16 ng/L (0-10) H 12/23/21 22: Troponin T 120 Minute 16.40 ng/L (0-10) H 12/24/21 00:56 Delta Troponin T 0.40 ABS# (0-10) 12/24/21 00:56 Troponin T Hi Sens 6Hr 17.98 ng/L (0-10) H 12/24/21 04:07 Troponin T Hi Sens 6Hr Delta 1.98 ng/L (0-12) 12/24/21 04:07 C-Reactive Protein 29.6 mg/L (0.0-4.9) H 12/23/21 22: NT-Pro-B Natriuret Pep 1857 pg/mL (0-450) H 12/23/21 22: Total Protein 7.1 g/dL (6.6-8.7) 12/23/21 22: Albumin 4.1 g/dL (3.5-5.2) 12/23/21: Globulin 3.0 g/dL (1.3-4.6) 12/23/21 22: Triglycerides 93 mg/dL (0-150) 12/24/21 04:02 Cholesterol 153 mg/dL (0-200) 12/24/21 04:02 LDL Cholesterol, Calc 84 mg/dL (50-129) 12/24/21 04:02 HDL Cholesterol 50 mg/dL (60-100) L 12/24/21 04:02 LDL/HDL Ratio 1.68 RATIO (0.00-3.22) 12/24/21 04:02 Cholesterol/HDL Ratio 3.06 mg/dL (0.0-4.40) 12/24/21 04:02 Procalcitonin 0.11 ng/mL (0-0.5) 12/23/21 22:28 TSH 2.33 uIU/mL (0.27-4.20) 12/23/21 22:28 Urine Color Yellow (Yellow) 12/23/21 23:09 Urine Appearance Hazy (CLEAR) A 12/23/21 23:09 Urine pH 5 (5-7) 12/23/21 23:09 Ur Specific [place] 1.020 (1.005-1.030) 12/23/21 23:09 Urine Protein 1+ (Negative) H 12/23/21 23:09 Urine Glucose (UA) Norm (Normal) 12/23/21 23:09 Urine Ketones 1+ (Negative) H 12/23/21 23:09 Urine Blood Neg (Negative) 12/23/21 23:09 Urine Nitrate Negative (Negative) 12/23/21 23:09 Urine Bilirubin 1+ (Negative) H 12/23/21 23:09 Urine Urobilinogen 1 mg/dL (Negative) H 12/23/21 23:09 Ur Leukocyte Esterase Trace (Negative) H 12/23/21 23:09 Urine RBC 0-4 /hpf (0-2) H 12/23/21 23:09 Urine WBC 5-10 /hpf (0-5) H 12/23/21 23:09 Ur Squamous Epith Cells 10-15 /hpf (0-5) H 12/23/21 23:09 Amorphous Sediment 1+ /hpf 12/23/21 23:09 Urine Bacteria 1+ /hpf (NONE) H 12/23/21 23:09 Critical Care Time Critical Care Time: Critical Care Time: Yes Total Critical Care Time: 35 Attestation: Due to a high probability of clinically significant, possibly life threatening deterioration, the patient required my highest level of attention and preparedness to intervene emergently and I personally spent this critical care time directly and personally managing the patient. This critical care time included obtaining a history; examining the patient; pulse oximetry; ordering and review of laboratory and imaging studies; arranging urgent treatment with development of a management plan; evaluation of patient's response to treatment; frequent reassessment; and, discussions with other providers as applicable. It was exclusive of separately billable procedures. Primary system involved is neuro Discharge Plan Discharge Patient Disposition: Admitted As Inpatient Admit Provider: Yong Allen Clinical Impression: Stroke-like symptom Condition: Stable Discharge Diet: Cardiac and Diabetic Discharge Activity: Resume usual activity Coding Level of Care Code ED Tissue Technologist for Chg Fwd Exam Comprehensive
[2021-12-23 21:10] VITALS: BP 150/74; PULSE 93; RESP 20; TEMP 36.7; O2SAT 91; BMI 32.3
--- NOTE | 2021-12-23 21:26 | XRR_ITS ---
PROCEDURE INFORMATION: Exam: XR Chest Exam date and time: 12/23/2021 9:37 PM Age: 81 years old Clinical indication: Other: AMS TECHNIQUE: Imaging protocol: Radiologic exam of the chest. Views: 1 view. COMPARISON: CT angio headneck* [id number] 12/22/2021 5:51 PM FINDINGS: Lungs: Unremarkable. No consolidation. Pleural spaces: Unremarkable. No pleural effusion. No pneumothorax. Heart/Mediastinum: CABG. Mild cardiac enlargement. Bones/joints: Unremarkable. XR/XR chest 1V portable [id number] IMPRESSION: No acute pulmonary disease identified.
--- NOTE | 2021-12-23 21:26 | CTR_ITS ---
PROCEDURE INFORMATION: Exam: CT Head Without Contrast Exam date and time: 12/23/2021 9:34 PM Age: 81 years old Clinical indication: Patient HX: General weakness with lethargy. Diagnosed with TIA on 12/22/2021. ; Additional info: AMS TECHNIQUE: Imaging protocol: Computed tomography of the head without contrast. Radiation optimization: All CT scans at this facility use at least one of these dose optimization techniques: automated exposure control; mA and/or kV adjustment per patient size (includes targeted exams where dose is matched to clinical indication); or iterative reconstruction. COMPARISON: CT head wo con* [id number] 12/22/2021 11:51 AM RADIATION DOSE METRICS: Total DLP (mGy-cm): 1004.38 FINDINGS: Brain: There is moderate cerebral atrophy. There is moderate diffuse heterogeneity of the white matter attenuation, consistent with chronic white matter ischemic changes. Left occipital lobe encephalomalacia. Negative for intracranial hemorrhage. Negative midline shift of brain. Cerebral ventricles: No ventriculomegaly. Paranasal sinuses: Visualized sinuses are unremarkable. No fluid levels. Mastoid air cells: Visualized mastoid air cells are well aerated. Bones/joints: Unremarkable. No acute fracture. Soft tissues: Unremarkable. CT/CT head wo con* [id number] IMPRESSION: Negative for acute intracranial abnormality.
--- NOTE | 2021-12-23 21:27 | ECG_ITS ---
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 Measurements Intervals [place] Rate: 92 P: [place]: QRS: -45 QRSD: 93 T: 155 QT: 387 QTc: 479 Interpretive Statements ATRIAL FIBRILLATION LEFT AXIS DEVIATION [QRS AXIS < -30] INCOMPLETE RIGHT BUNDLE BRANCH BLOCK [90+ ms QRS DURATION, TERMINAL R IN V1/V2, 40+ ms S IN I/aVL/V4/V5/V6] ST DEVIATION AND MODERATE T-WAVE ABNORMALITY, CONSIDER LATERAL ISCHEMIA [-0.1+ mV T-WAVE IN I/aVL/V5/V6] Compared to ECG 12/22/2021 12:02:36 Left-axis deviation now present Incomplete right bundle-branch block now present T-wave abnormality now present Possible ischemia now present Myocardial infarct finding no longer present Electronically Signed On 12-24-2021 0:17:38 CDT by Ketan Huerta M.D. [id number]
[2021-12-23 22:42] LABS: Basophils # 0.1 10^3/uL (0.0-0.1); Basophils % 0.4 %; Eosinophils # 0.1 10^3/uL (0.0-0.8); Eosinophils % 0.7 %; Hematocrit 47.6 % (37.0-47.0); Hemoglobin 15.3 g/dL (11.5-15.3); Lymphocytes # 2.2 10^3/uL (0.8-4.8); Lymphocytes % 18.9 %; Mean Corpuscular HGB Conc 32.1 g/dL (30.0-36.0); Mean Corpuscular Hemoglobin 29.1 pg (28.0-34.0); Mean Corpuscular Volume 90.7 fl (81-99); Mean Platelet Volume 10.4 fL (7.4-10.4); Monocytes # 0.9 10^3/uL (0.2-0.9); Monocytes % 7.4 %; Neutrophils % 72.3 %; Nucleated Red Blood Cells % 0 %; Platelet Count 355 10^3/cmm (130-400); Red Blood Count 5.25 10^6/uL (4.1-5.3); Red Cell Distribution Width 14.9 % (12.1-15.1); White Blood Count 11.8 10^3/uL (4.0-10.0)
[2021-12-23 23:01] LABS: Troponin(5th) Baseline 16 ng/L (0-10)
[2021-12-23 23:07] LABS: Glucose Point of Care 158 mg/dL (70-110)
[2021-12-23 23:12] LABS: NT Pro B Type Natriuretic Pept 1857 pg/mL (0-450); Procalcitonin 0.11 ng/mL (0-0.5); Thyroid Stimulating Hormone 2.33 uIU/mL (0.27-4.20)
[2021-12-23 23:23] LABS: Alanine Aminotransferase 10 U/L (0-33); Albumin Level 4.1 g/dL (3.5-5.2); Alkaline Phosphatase 86 U/L (35-105); Anion Gap 19.3 (5-19); Aspartate Amino Transferase 17 U/L (0-32); Blood Urea Nitrogen 24 mg/dL (8-23); C Reactive Protein 29.6 mg/L (0.0-4.9); Calcium 9.5 mg/dL (8.5-10.5); Carbon Dioxide 21 mmol/L (22-29); Chloride 103 mmol/L (98-107); Glucose 179 mg/dL (65-115); Osmolality Calculated 297 mOsm/kg (285-295); Potassium 4.3 mmol/L (3.5-5.1); Sodium 139 mmol/L (136-145); Total Bilirubin 0.4 mg/dL (0.15-1.2); Total Protein 7.1 g/dL (6.6-8.7)
--- NOTE | 2021-12-23 23:27 | ECG_ITS ---
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 Measurements Intervals [place] Rate: 81 P: [place]: QRS: -49 QRSD: 86 T: 158 QT: 373 QTc: 434 Interpretive Statements ATRIAL FIBRILLATION LEFT AXIS DEVIATION [QRS AXIS < -30] POSSIBLE RIGHT VENTRICULAR CONDUCTION DELAY [RSR (QR) IN V1/V2] SEPTAL MYOCARDIAL INFARCTION , OF INDETERMINATE AGE [40+ ms Q WAVE IN V1/V2] Compared to ECG 12/23/2021 22:59:38 Myocardial infarct finding now present Incomplete right bundle-branch block no longer present T-wave abnormality no longer present Possible ischemia no longer present Electronically Signed On 12-25-2021 8:45:13 CDT by Tati Galvan M.D. [id number]
[2021-12-23 23:33] LABS: ABG PH Result 7.43 (7.35-7.45); Arterial Blood Gas Hematocrit 46.9 % (37-47); Base Excess ABG -0.4 mmol/L (-2.0-2.0); Blood Gas Allen Test Pos; Blood Gas Operator Identificat WALCI; Blood Gas Sample Site Radial, left; Blood Gas Sample Type Arterial; HCO3 ABG 23.6 mmol/L (22-26); Oxygen Device NC; PO2 ABG 67.4 mmHg (80.0-100.0)
[2021-12-24] VITALS (9 sets, daily range): BP systolic 165–193; BP diastolic 72–90; PULSE 75–96; RESP 16–22; TEMP 36.7–36.9; O2SAT 94–99; BMI 34.4
[2021-12-24] MEDS: lactated ringers 1,000 ML 999 ML IV (00:07)
[2021-12-24] MEDS: hyDRALAzine 25 mg Tablet PO (00:11)
[2021-12-24 00:22] LABS: Blood Urine Neg (Negative); Glucose Urine UA Norm (Normal); Ketones Urine 1+ (Negative); Protein Urine 1+ (Negative); Urine Appearance Hazy (CLEAR); Urine Color Yellow (Yellow); pH Urine 5 (5-7)
[2021-12-24 00:23] LABS: Add Urine Microscopic? YES; Bilirubin Urine 1+ (Negative); Leukocyte Esterase Urine Trace (Negative); Nitrate Urine Negative (Negative); Urobilinogen Urine 1 mg/dL (Negative)
[2021-12-24 00:24] LABS: Amorphous Sediment Urine 1+ /hpf; Bacteria Urine 1+ /hpf; RBC Urine 0-4 /hpf (0-2)
[2021-12-24 00:25] LABS: Add Urine Culture? No
--- NOTE | 2021-12-24 01:52 | MR_ITS ---
WS: [id number] MRI HEAD WITHOUT CONTRAST TECHNIQUE: Sagittal T1, T2 axial, T2 axial FLAIR, axial and coronal T1 images, axial susceptibility w eighted imaging, axial diffusion weighted images, and coronal T2 images were obtained. CLINICAL INFORMATION: cva COMPARISON: CT December 23, 2021 FINDINGS: Patchy restricted diffusion involving the LEFT JOHANNY territory involving the parasagittal LEFT frontal lobe about the LEFT frontal horn. This involves the genu of the corpus callosum. Additional patchy re stricted diffusion involving the parasagittal LEFT frontal lobe extending posteriorly in the JOHANNY terr itory. Findings compatible with acute ischemia. This extends along the inferior LEFT frontal lobe at the cortex. Additional tiny punctate focus involving the LEFT parietal lobe. Mild soft tissue edema. No significant mass effect or mid defect or midline shift. Moderate to advanc ed small vessel changes. Moderate parenchymal volume loss. Normal posterior fossa. Normal vascular fl ow voids at the skull base. No extra-axial fluid collections. Mild mucosal thickening ethmoid air cells. Mastoid air cells well a erated. Small vessel changes in the gulshan. Benign basal ganglia calcifications. MR/MR head wo con* [id number] IMPRESSION: 1. Acute ischemia involving the LEFT parasagittal frontal lobe in the JOHANNY terr itory along the LEFT frontal horn extending posteriorly into the LEFT parasagit shanna deep frontal white matter. Largest areas of ischemia measures approximately 1.6 x 1.8 cm and 2.7 x 1.4 cm 2. Mild associated edema. No significant mass effect or midline shift. 3. Moderate to advanced small vessel changes with moderate parenchymal volume loss. 4. Small vessel changes in the gulshan. 5. Tiny chronic lacunar infarct LEFT thalamus. 6. Mild mucosal thickening in the ethmoid air cells. Notified Ai Coronel MD at 12/24/2021 12:08 PM.
--- NOTE | 2021-12-24 01:52 | USCV_ITS ---
Lizzie Coughlin Age: 81 Gender: F : 1940 Exam Date: 12/24/2021 03:07 Ordering Phys: Yong Allen MD Technologist: HERBER Exam Location: [facility] [place] Indication: CVA BP: 165 / 90 HR: 86 Rhythm: Atrial fibrillation Technical Quality: Adequate MEASUREMENTS (Male / Female) Normal Values 2D ECHO LV Diastolic Diameter PLAX 3.9 cm 4.2 - 5.9 / 3.9 - 5.3 cm LV Systolic Diameter PLAX 2.3 cm IVS Diastolic Thickness 1.9 cm 0.6 - 1.0 / 0.6 - 0.9 cm IVS Systolic Thickness 2.2 cm LVPW Diastolic Thickness 1.6 cm 0.6 - 1.0 / 0.6 - 0.9 cm LVPW Systolic Thickness 2.0 cm LVOT Diameter 1.8 cm LV Ejection Fraction 2D Teich 73.1 % LV Ejection Fraction MOD 2C 70.7 % LV Ejection Fraction 2C AL 70.5 % LA Diameter 5.8 cm LA Width 4.8 cm LA Height 5.7 cm RA Width 4.9 cm RA Height 4.8 cm Aorta at Sinotubular Diameter 2.5 cm IVC Diameter 1.4 cm M-MODE Aortic Annulus Diameter 2.7 cm LA Ao Ratio MM 2.2 MV E Point Septal Separation 0.2 cm DOPPLER AV Peak Velocity 130.0 cm/s LVOT Peak Velocity 95.0 cm/s AV Area Cont Eq vti 1.7 cm squared AV Area Cont Eq pk 1.9 cm squared MV Area PHT 4.3 cm squared MV E' Velocity 54.5 cm/s Mitral E to MV E' Ratio 13.3 Mitral E to LV E' Lateral Ratio 9.5 Mitral E to LV E' Septal Ratio 22.4 TR Peak Velocity 280.0 cm/s TR Peak Gradient 31.4 mmHg TV Peak E Velocity 66.0 cm/s Right Atrial Pressure 10.0 mmHg Pulmonary Artery Systolic Pressu 41.4 mmHg PV Peak Velocity 114.0 cm/s RV Acceleration Time 0.1 s RV Ejection Time 0.3 s RV AcT/ET 0.3 FINDINGS Left Ventricle Normal left ventricular size, systolic function and wall thickness, with no regional wall motion abnormalities. Moderate concentric left ventricle hypertrophy. Left ventricular ejection fraction is estimated at 65 %. Rhythm precludes evaluation of diastolic function. Right Ventricle Normal right ventricular size and systolic function. Right ventricular systolic pressure 36 mmHg. Right Atrium Normal right atrial size. Left Atrium Moderately increased left atrial size. Mitral Valve Mild mitral annular calcification. No mitral valve stenosis. Trace mitral valve regurgitation. Aortic Valve Mildly thickened and calcified trileaflet aortic valve. No aortic valve stenosis. Tricuspid Valve Structurally normal tricuspid valve. No tricuspid valve stenosis. Mild tricuspid valve regurgitation. Pulmonic Valve Structurally normal pulmonic valve. No pulmonary valve stenosis. No significant pulmonary valve regurgitation. Pericardium No pericardial effusion. Aorta Normal size aortic root and proximal ascending aorta. IVC Normal IVC dimension with >50% respiratory change of the inferior vena cava. CONCLUSIONS 1. Normal left ventricular size, systolic function and wall thickness, with no regional wall motion abnormalities. Moderate concentric left ventricle hypertrophy. Left ventricular ejection fraction is estimated at 65 %. 2. Normal right ventricular size and systolic function. 3. Mild tricuspid valve regurgitation. 4. Mild pulmonary hypertension with pulmonary pressure estimated at 36 mm Hg. 5. No prior similar studies to compare Tati Galvan MD (Electronically Signed) Final Date: 24 December 2021 12:15 S
--- NOTE | 2021-12-24 02:02 | P.HP_ITS ---
Providers/Chief Complaint Primary Care Provider: Sheela Rodriguez MD Chief Complaint: Possible CVA History of Present Illness Lizzie Coughlin is a 81 year old female with a past history of atrial fibrillation recently on warfarin, held due to supratherapeutic INR, resumed yesterday, last INR 1.3, CAD, CKD, hypertension, hyperlipidemia, type 2 diabetes mellitus, TIA, recent hospitalization for TIA symptoms discharge yesterday who presents [facility] due to generalized weakness, increased confusion, right facial droop. Patient was discharged from the hospital yesterday afternoon, most of her strokelike symptoms had resolved, she was able to walk on the hospital, however when she got her car and was on the way home because she was acting confused. When she got to her home she had generalized weakness and could not get out of her car her son had to pick her up out of the car, he also noticed right-sided facial droop, possible slurring, increased confusion. During my examination patient tells that she does not know why she is here, she is alert to person, to place, to time, she follows commands, no facial droop, no slurring of her words, responses are delayed, but she gets most of her questions appropriately, she recognizes family members at bedside, she does not know why she is here in the hospital she has no pain complaints, no chest pain, no shortness of breath, no nausea, no vomiting, no changes in her vision but she does tell me that her memory remains a bit hazy, Review of Systems Eyes: Denies: change in vision Card: Denies: chest pain Resp: Denies: dyspnea GI: Denies: abdominal pain Neuro: Reports: weakness in extremities and difficulty walking; Denies: headache(s) or numbness in extremities Medications/Allergies Home Medications Medication Instructions Recorded Confirmed Last Taken Type allopurinol 100 mg tablet 100 mg PO DAILY 10/30/20 12/22/21 12/22/21 History amlodipine 10 mg tablet 10 mg PO DAILY 10/30/20 12/22/21 12/22/21 History aspirin 81 mg tablet,delayed 81 mg PO DAILY 10/30/20 12/22/21 Unknown History release (Adult Aspirin Regimen) clonidine HCl 0.3 mg tablet 0.3 mg PO DAILY 10/30/20 12/22/21 12/22/21 History isosorbide mononitrate 120 mg 120 mg PO DAILY 10/30/20 12/22/21 12/22/21 History tablet,extended release 24 hr lisinopril 10 mg tablet 20 mg PO DAILY 10/30/20 12/22/21 12/22/21 History nitroglycerin 0.4 mg sublingual 0.4 mg sublingual Q5M PRN Chest 10/30/20 12/22/21 Unknown History tablet (Nitrostat) Pain Prosacea 1 applic topical DAILY 11/24/20 12/22/21 12/22/21 History glimepiride 2 mg tablet 8 mg PO DAILY 06/16/21 12/22/21 12/22/21 History lovastatin 40 mg tablet 80 mg PO DAILY 06/16/21 12/22/21 12/22/21 History hydralazine 25 mg tablet 25 mg PO TID #90 tabs 06/30/21 12/22/21 12/22/21 Rx metoprolol succinate 25 mg 25 mg PO DAILY #90 tabs 11/16/21 12/22/21 12/22/21 Rx tablet,extended release 24 hr warfarin 1 mg tablet 1 mg PO DAILY 12/22/21 12/22/21 12/22/21 History Allergies Allergy/AdvReac Type Severity Reaction Status Date / Time atorvastatin [From Lipitor] Allergy ALGY-Anaphy Verified 12/22/21 12:59 laxis PFSH Acute PFSH: Medical History Arthritis Atrial fibrillation CAD (coronary artery disease) of artery bypass graft Carotid bruit Chronic anticoagulation CKD (chronic kidney disease) Patient denies Fatigue Hx of type 2 diabetes mellitus Hyperlipidemia Hypertension Osteoporosis Rosacea TIA (transient ischemic attack) Surgical History History of parathyroidectomy Hx of cataract extraction Hx of hysterectomy Hx of salpingo-oophorectomy, bilateral S/P CABG x 4 Family History Sister Cancer CAD (coronary artery disease) Mother Diabetes CAD (coronary artery disease) Hypertension Stroke Cancer Dementia Denies family history of Clotting disorder Chronic kidney disease (CKD) Suicide Anesthesia complication Bleeding disorder Lung disease Social History Smoking and tobacco status: never smoked Alcohol intake: never Vitals/I&O/Wt Last Vital Signs Temp 98.0 F 12/23/21 21:10 Pulse 75 12/24/21 01:58 Resp 16 12/24/21 01:58 BP 165/90 12/24/21 01:58 Pulse Ox 94 12/24/21 01:58 O2 Del Method 12/23/21 21:10 O2 Flow Rate 2 12/24/21 01:58 Weight last 48 hrs Weight 72.575 kg Physical Exam Const: COMMON NORMALS: no acute distress and patient oriented x3 HENMT: COMMON NORMALS: normocephalic HEAD & SCALP: normocephalic Eye: COMMON NORMALS: Equal, round and reactive pupils present and EOMs intact bilaterally Neck/C-Spine: COMMON NORMALS: no JVD Resp: COMMON NORMALS: normal respiratory effort, No retractions, No use of accessory muscles and clear to auscultation bilaterally AUSCULTATION: clear to auscultation bilaterally Cardio: COMMON NORMALS: no JVD, regular rate, regular rhythm, S1 normal heart sound present and S2 normal heart sound present RATE: regular rate RHYTHM: regular rhythm HEART SOUNDS: S1 normal heart sound present and S2 normal heart sound present GI: COMMON NORMALS: Normal to inspection, nondistended, normoactive bowel sounds present, Soft to palpation, non-tender, No hepatosplenomegaly present, no masses and no bruits PALPATION: Yes Soft to palpation and Yes No hepatosplenomegaly present Extremity: COMMON NORMALS: capillary refill normal, no clubbing, cyanosis or edema, no calf tenderness and no pedal edema Neuro: COMMON NORMALS: patient oriented x3, CN's II-XII intact bilaterally, moves all extremities and no focal motor deficits Psych: COMMON NORMALS: mental status grossly normal Data : 12/23/21 22:28 12/23/21 22:28 Micro: Microbiology 12/23/21 22:28 Blood Culture - Preliminary Blood SPECIMEN COLLECTED A&P Assessment and plan (1) Stroke-like symptom: Status: Acute (2) Atrial fibrillation: Status: Acute (3) Chronic anticoagulation: Status: Acute (4) CKD (chronic kidney disease): Status: Acute (5) CAD (coronary artery disease) of artery bypass graft: Status: Acute Qualifiers: [place] vs. transplanted heart: [place] heart Associated angina: without angina Qualified Code(s): I25.810 - Atherosclerosis of coronary artery bypass graft(s) without angina pectoris (6) Hypertension: Status: Acute Qualifiers: Hypertension type: essential hypertension Qualified Code(s): I10 - Essential (primary) hypertension Plan Strokelike symptoms -[facility] was consulted by ER physician, recommended hospitalization, monitoring, MRI, permissive hypertension -Currently alert oriented x3, following all commands, no focal neurologic deficits, is a bit hazy in her memory, responses delayed, family's concern for confusion -CT head no acute findings -UA no significant evidence of UTI, chest x-ray and no pneumonia -No significant electrolyte normalities -Patient symptoms are consistent with posterior circulation stroke -NIH stroke scale 0 for me, 1 for the ER physician, not a tPA candidate, is on Coumadin, INR one-point 3 repeat INR pending Plan -Admit to general medical floors -Lie flat, maintain permissive hypertension, IV fluids -Treat with labetalol if systolic rhythm 220 diastolic rhythm 120 -Check INR, resume home Coumadin, it was held as INR was over 8, now it is 1.3. Can consider the bridging on discharge if she is not therapeutic -Continue aspirin, statin -PT OT, aspiration precautions, neurochecks, and a stroke scale -MRI of the brain ordered -Full code -Coumadin for DVT prophylaxis KAYLIN, on CKD, IV fluids Attestations Medical Necessity Statement*: Patient requires hospital, outpatient with observation, for strokelike symptoms Coding Level of Care Code Acute Negative Notcher for Sukumar Renteria Diagnoses Stroke-like symptom R29.90 Atrial fibrillation I48.91 Chronic anticoagulation Z79.01 CKD (chronic kidney disease) N18.9 CAD (coronary artery disease) of artery bypass graft I25.810 [place] vs. transplanted heart: [place] heart Associated angina: without angina Hypertension I10 Hypertension type: essential hypertension
[2021-12-24 02:43] LABS: INR 1.43 (0.8-1.2)
[2021-12-24] MEDS: sodium chloride 0.9% 1,000 ML 100 ML IV (03:51)
[2021-12-24 05:26] LABS: Troponin 5 6HR 17.98 ng/L (0-10)
[2021-12-24 05:33] LABS: Troponin 5 6HR Delta 1.98 ng/L (0-12)
[2021-12-24 06:43] LABS: Glucose Point of Care 148 mg/dL (70-110)
[2021-12-24] MEDS: aspirin 81 mg EC Tablet PO (08:49)
[2021-12-24] MEDS: warfarin 2 mg Tablet 1 MG PO (08:50)
--- NOTE | 2021-12-24 13:14 | PC.CHAP ---
Pastoral Care Encounter/Spiritual Assessment Type of Contact [] Declined computer information science professor visit [] Patient/Family/Request visit [] Outpatient visit [] Follow-up visit [] Physician referral [] Code/Alert [x] Routine visit [] Staff referral [] Actively dying [] Patient sleeping [] Family support [] [] Out of room [] Palliative care [] [] Receiving care in room [] Pre-surgical visit [] Trauma [] Long length of stay [] ICU visit [] Other: Relational/Emotional Strength [x] Patient feels connected with others/family/visitors/staff [] Distress [] Loneliness/isolation [] Abandonment Spirituality of Patient [x] Person of [place] [x] Attends Church of their [place] [x] Believes in Prayer []x Reads Bible or Orthodox materials [] There are Spiritual issues to be addressed Prick Stitcher Interventions [x] Prayer [x] Active listening x[] Non-anxious presence [x] Spiritual/emotional support [] Crisis/trauma care [] Spiritual counseling [] Bereavement support [] Provided bereavement packet [] Provided Bible/devotional materials [] Provided toy/stuffed animal, coloring book to patient or family member [] Provided Communion [] Anointing/[place] [] Salvation [x] Completed spiritual assessment [] Other: Impact on Illness or Injury [] Angry [] Fearful [] Anxious [] Often cries [] Exhaustion [] Unable to work [] Unable to attend episcopal [] Unable to walk/stand [] Unable to read [] Unable to drive [] Unable to eat/drink [] Unable to sleep [] Unable to be with family [] Patient intubated [] Other: Summary Time spent with patient 15 min
--- NOTE | 2021-12-24 14:14 | PM.MISC ---
Miscellaneous Note Purpose of Documentation: Seen this morning Note: Had a long discussion with patient's family this a.m. it seems as if patient symptoms developed after she left the hospital once they got home she was unable to get out of the car and had a right facial droop slurred speech and increasing confusion. Her son stated that they waited a few hours before coming back to the ER hoping that the symptoms would resolve. The son had to carry her into the house. Also of note patient missed her last INR appointment with her primary care doctor. The son and daughter both were at bedside this morning and they agreed that patient does forget to take her medication at times. Occupational Therapy was working with the patient when I went to see her. Started out of a capone at bedside. Patient was able to tell us what year it was but did seem a little confused. Patient went for the MRI shortly thereafter. CT head done last night on admission was negative for any acute intraocular abnormalities. MRI had resulted around 12:30 PM today and showed acute ischemia involving left parasagittal frontal lobe and JOHANNY territory along the left frontal horn extending posteriorly into the left parasagittal deep frontal white matter with largest areas of ischemia measuring approximately 1.6 x 1.8 cm and 2.7 x 1.4 cm. The above findings were relayed to me by the radiologist personally over the phone. I called [facility] telestroke service and discussed the case with on-call neurologist. Luckily he had evaluated her last night when she first came to the hospital therefore was familiar with her as well. He recommended that we hold warfarin for 4 days After 4 days he recommended to start Eliquis 5 mg twice daily Check hemoglobin A1c which is 9.1, repeat lipid profile. This was repeated previous admission so therefore I will not redo. Recommended to switch lovastatin 80 mg twice for atorvastatin 40 mg daily Physical therapy, Occupational Therapy Formal speech evaluation Aspirin 325 mg daily for 4 days. At that point switch to Eliquis 5 mg twice daily According to bridge trial he also recommended not to bridge the patient when starting the Eliquis. Okay to order DVT prophylaxis Heparin subcu Allow for permissive hypertension for next 48 hours to 220/120 Thereafter for 2 weeks although hypertension up to 160 systolic The patient no longer experiencing symptoms at that time may start to lower blood pressure down to normal range with PCPs advice. The above instructions were relayed to the nurse. I will also personally go explain all of the above to the family.
[2021-12-24 15:11] LABS: Chol HDL Ratio 3.06 mg/dL (0.0-4.40); Cholesterol 153 mg/dL (0-200); HDL Cholesterol 50 mg/dL (60-100); LDL Cholesterol Calculated 84 mg/dL (50-129); LDL HDL Ratio 1.68 RATIO (0.00-3.22); Triglycerides 93 mg/dL (0-150)
[2021-12-24] MEDS: heparin 5,000 unit/mL INJ 1 mL 5000 UNIT SUBCUT (17:58)
[2021-12-24 21:10] LABS: Glucose Point of Care 220 mg/dL (70-110)
[2021-12-24] MEDS: insulin lispro 100 unit/1 mL SUBCUT (22:17)
[2021-12-25] VITALS (9 sets, daily range): BP systolic 162–191; BP diastolic 74–82; PULSE 58–110; RESP 16–17; TEMP 36.7–37; O2SAT 91–96
[2021-12-25] MEDS: heparin 5,000 unit/mL INJ 1 mL 5000 UNIT SUBCUT ×2 (03:57→16:29)
[2021-12-25 05:15] LABS: Basophils # 0.1 10^3/uL (0.0-0.1); Basophils % 0.5 %; Eosinophils # 0.2 10^3/uL (0.0-0.8); Eosinophils % 2.2 %; Hematocrit 51.5 % (37.0-47.0); Lymphocytes # 1.8 10^3/uL (0.8-4.8); Lymphocytes % 17.9 %; Mean Corpuscular HGB Conc 31.1 g/dL (30.0-36.0); Mean Corpuscular Hemoglobin 29.3 pg (28.0-34.0); Mean Corpuscular Volume 94.1 fl (81-99); Mean Platelet Volume 10.3 fL (7.4-10.4); Monocytes # 0.8 10^3/uL (0.2-0.9); Monocytes % 8.3 %; Neutrophils # 7.14 10^3/uL (1.8-7.7); Neutrophils % 70.8 %; Nucleated Red Blood Cells % 0 %; Platelet Count 317 10^3/cmm (130-400); Red Blood Count 5.47 10^6/uL (4.1-5.3); Red Cell Distribution Width 14.9 % (12.1-15.1); White Blood Count 10.1 10^3/uL (4.0-10.0)
[2021-12-25 05:38] LABS: Anion Gap 17.2 (5-19); Blood Urea Nitrogen 20 mg/dL (8-23); Calcium 9.8 mg/dL (8.5-10.5); Carbon Dioxide 24 mmol/L (22-29); Chloride 103 mmol/L (98-107); Glucose 120 mg/dL (65-115); Osmolality Calculated 294 mOsm/kg (285-295); Potassium 4.2 mmol/L (3.5-5.1); Sodium 140 mmol/L (136-145)
[2021-12-25 06:21] LABS: Glucose Point of Care 113 mg/dL (70-110)
[2021-12-25] MEDS: aspirin 325 mg Tablet PO (08:28)
--- NOTE | 2021-12-25 10:20 | PC.SOCIAL ---
IMM update Imm updated with patient at bedside. Copy of page 2 provided to patient. Patient verbalized understanding. Copy of page 2 initialed, dated and signed in chart.
[2021-12-25] MEDS: metoprolol tartrate 25 mg Tablet PO ×2 (10:41→20:54)
--- NOTE | 2021-12-25 11:12 | P.PN_ITS ---
Subjective Subjective: Seen this morning. Patient is alert and oriented x3. It seems she does have some memory issues at this time. She is able to swallow with no difficulty. She does have a blank look to her face however when you are talking to her and she smiles a little more often. No gross focal neurological de ficits. Able to move all 4 extremities. She also work with physical therapy this morning Vitals/I&O/Wt Last Vital Signs Temp 98.1 F 12/25/21 08:00 Pulse 93 12/25/21 08:00 Resp 16 12/25/21 08:00 BP 189/80 12/25/21 08:00 Pulse Ox 96 12/25/21 08:00 O2 Del Method 12/25/21 08:00 O2 Flow Rate 2 12/24/21 19:40 12/24/21 12/25/21 12/25/21 22:59 06:59 14:59 Intake Total 440 / 1040 100 / 1140 360 / 360 Output Total 250 / 250 700 / 950 Balance 190 / 790 -600 / 190 360 / 360 Weight last 48 hrs Weight 77.337 kg Weight 72.575 kg Physical Exam Narrative: General: Alert oriented x3, seen sitting up in chair appearing happy and smiling. HEENT: Normocephalic, atraumatic, EOMI, breathing comfortably on room air Cardio: Irregularly irregular, normal S1-S2, Respiratory: Clear to auscultation bilaterally no wheezes no rhonchi GI: Abdomen soft, nontender, nondistended, bowel sounds + Extremities: Chronic right lower extremity edema present.? Right leg larger than left leg.? She has history of CABG. No skin rash or edema present. Neuro: Cranial nerves II to XII intact. No aphasia. Strength 4 out of 5 bilateral upper extremities, 3 out of 5 right lower extremity, 4 out of 5 left lower extremity. PERRLA. Peripheral vision slightly impaired. Gait normal. Eunkps-fb-itin normal. Follows all commands. Able to track head movement. Memory recall impaired. Unable to repeat 3 words said to her. Data : 12/25/21 04:38 12/25/21 04:38 Micro: Microbiology 12/23/21 22:28 Blood Culture - Preliminary Blood NEGATIVE TO DATE A&P Assessment and plan (1) Altered mental status: Status: Resolved (2) Acute confusion: Status: Resolved (3) Atrial fibrillation: Status: Acute (4) Chronic anticoagulation: Status: Acute (5) CKD (chronic kidney disease): Status: Acute (6) CAD (coronary artery disease) of artery bypass graft: Status: Acute Qualifiers: [place] vs. transplanted heart: [place] heart Associated angina: without angina Qualified Code(s): I25.810 - Atherosclerosis of coronary artery bypass graft(s) without angina pectoris (7) Hypertension: Status: Acute Qualifiers: Hypertension type: essential hypertension Qualified Code(s): I10 - Essential (primary) hypertension (8) TIA (transient ischemic attack): Status: Resolved Plan #Acute left parasagittal frontal lobe territory stroke #History of CABG #Atrial fibrillation, on warfarin chronically #Hypertension #Hyperlipidemia #Type 2 diabetes mellitus #Arthritis #Carotid bruit? #CKD, creatinine 1.2 at baseline ? Patient does have a history of TIA listed in the chart. Unsure of details however. She is confused. Urinalysis is negative. WBC 10.7. INR 1.27. Creatinine 1.2 at baseline -MRI had resulted around 12:30 PM today and showed acute ischemia involving left parasagittal frontal lobe and JOHANNY territory along the left frontal horn extending posteriorly into the left parasagittal deep frontal white matter with largest areas of ischemia measuring approximately 1.6 x 1.8 cm and 2.7 x 1.4 cm. -CTA head and neck showed focal area of severe stenosis and left vertebral artery proximal to basilar artery. ? Allow for permissive hypertension. 220/120 upto 48 hours. -For 2 weeks have blood pressure goal of 160 systolic as per recommendations from [facility]. ? Continue aspirin 325 for total of 4 days at which point transition to Eliquis. No bridging required. Start warfarin ? Physical therapy, Occupational Therapy. ? Case management looking into rehab facility. -Continue lovastatin 80 mg daily ? Heart rate elevated this morning. I will restart metoprolol 25 twice daily for the patient. She went into A. fib with RVR this AM. Full Code Family updated at bedside. Attestations Medical Necessity Statement*: Patient needs to stay in the hospital for continued physical therapy and Occupational Therapy. Need to monitor her in the hospital and watch for hemorrhagic conversion. She will eventually need rehab. Coding Level of Care Code Acute Gymnastic Coach for Sukumar Renteria Diagnoses Altered mental status R41.82 Acute confusion R41.0 Atrial fibrillation I48.91 Chronic anticoagulation Z79.01 CKD (chronic kidney disease) N18.9 CAD (coronary artery disease) of artery bypass graft I25.810 [place] vs. transplanted heart: [place] heart Associated angina: without angina Hypertension I10 Hypertension type: essential hypertension TIA (transient ischemic attack) G45.9
[2021-12-25 11:43] LABS: Glucose Point of Care 191 mg/dL (70-110)
[2021-12-25] MEDS: insulin lispro 100 unit/1 mL SUBCUT ×2 (13:08→21:10)
[2021-12-25 17:07] LABS: Glucose Point of Care 140 mg/dL (70-110)
[2021-12-25 20:49] LABS: Glucose Point of Care 196 mg/dL (70-110)
[2021-12-25 20:49] LABS: Glucose Point of Care 166 mg/dL (70-110)
[2021-12-26] VITALS (9 sets, daily range): BP systolic 148–206; BP diastolic 70–96; PULSE 63–103; RESP 14–18; TEMP 36.3–37.1; O2SAT 90–93
[2021-12-26] MEDS: heparin 5,000 unit/mL INJ 1 mL 5000 UNIT SUBCUT ×2 (03:51→17:49)
[2021-12-26 05:55] LABS: Basophils # 0.1 10^3/uL (0.0-0.1); Basophils % 0.7 %; Eosinophils # 0.3 10^3/uL (0.0-0.8); Eosinophils % 3.2 %; Hematocrit 49.8 % (37.0-47.0); Hemoglobin 16.2 g/dL (11.5-15.3); Lymphocytes # 2.4 10^3/uL (0.8-4.8); Lymphocytes % 25.8 %; Mean Corpuscular HGB Conc 32.5 g/dL (30.0-36.0); Mean Corpuscular Hemoglobin 29.6 pg (28.0-34.0); Mean Platelet Volume 10.9 fL (7.4-10.4); Monocytes # 0.7 10^3/uL (0.2-0.9); Monocytes % 7.6 %; Neutrophils # 5.76 10^3/uL (1.8-7.7); Neutrophils % 62.5 %; Nucleated Red Blood Cells % 0 %; Platelet Count 324 10^3/cmm (130-400); Red Blood Count 5.47 10^6/uL (4.1-5.3); Red Cell Distribution Width 14.9 % (12.1-15.1); White Blood Count 9.2 10^3/uL (4.0-10.0)
[2021-12-26 06:24] LABS: Blood Urea Nitrogen 21 mg/dL (8-23); Calcium 9.7 mg/dL (8.5-10.5); Carbon Dioxide 25 mmol/L (22-29); Chloride 102 mmol/L (98-107); Glucose 126 mg/dL (65-115); Osmolality Calculated 291 mOsm/kg (285-295); Sodium 138 mmol/L (136-145)
[2021-12-26 06:26] LABS: Glucose Point of Care 120 mg/dL (70-110)
[2021-12-26 06:27] LABS: Anion Gap 15.6 (5-19); Potassium 4.6 mmol/L (3.5-5.1)
[2021-12-26] MEDS: amlodipine 10 mg Tablet PO (10:35)
[2021-12-26] MEDS: metoprolol tartrate 25 mg Tablet PO ×2 (10:35→21:16)
[2021-12-26] MEDS: aspirin 325 mg Tablet PO (10:35)
[2021-12-26 11:07] LABS: Glucose Point of Care 245 mg/dL (70-110)
[2021-12-26] MEDS: insulin lispro 100 unit/1 mL SUBCUT ×2 (12:19→21:16)
--- NOTE | 2021-12-26 13:18 | PM.PN ---
Subjective Subjective: No acute events overnight. Family at bedside. Patient able to talk to me and tell me where she is and what is going on. She is resting comfortably in bed. She states she had scrambled eggs for breakfast. Denies difficulty swallowing. Currently on a cardiac diet regular. Vitals/I&O/Wt Last Vital Signs Temp 98.4 F 12/26/21 11:45 Pulse 103 H 12/26/21 11:45 Resp 18 12/26/21 11:45 BP 168/81 12/26/21 11:45 Pulse Ox 92 12/26/21 11:45 O2 Del Method 12/26/21 11:45 O2 Flow Rate 2 12/24/21 19:40 12/25/21 12/26/21 12/26/21 22:59 06:59 14:59 Intake Total 340 / 700 120 / 120 Balance 340 / 700 120 / 120 Physical Exam Narrative: General: Alert oriented x3, seen sitting up in bed with family at bedside. HEENT: Normocephalic, atraumatic, EOMI, breathing comfortably on room air Cardio: Irregularly irregular, normal S1-S2, Respiratory: Clear to auscultation bilaterally no wheezes no rhonchi GI: Abdomen soft, nontender, nondistended, bowel sounds + Extremities: Chronic right lower extremity edema present.? Right leg larger than left leg.? She has history of CABG. No skin rash or edema present. Neuro: Cranial nerves II to XII intact. No aphasia. Strength 4 out of 5 bilateral upper extremities, 3 out of 5 right lower extremity, 4 out of 5 left lower extremity. Follows all commands. Able to track head movement. Memory recall impaired. Data : 12/26/21 05:10 12/26/21 05:10 A&P Assessment and plan (1) Altered mental status: Status: Resolved (2) Acute confusion: Status: Resolved (3) Atrial fibrillation: Status: Acute (4) Chronic anticoagulation: Status: Acute (5) CKD (chronic kidney disease): Status: Acute (6) CAD (coronary artery disease) of artery bypass graft: Status: Acute Qualifiers: [place] vs. 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 #CKD, creatinine 1.2 at baseline ? Patient does have a history of TIA listed in the chart. Unsure of details however. She is confused. Urinalysis is negative. WBC 10.7. INR 1.27. Creatinine 1.2 at baseline -MRI had resulted around 12:30 PM today and showed acute ischemia involving left parasagittal frontal lobe and JOHANNY territory along the left frontal horn extending posteriorly into the left parasagittal deep frontal white matter with largest areas of ischemia measuring approximately 1.6 x 1.8 cm and 2.7 x 1.4 cm. -CTA head and neck showed focal area of severe stenosis and left vertebral artery proximal to basilar artery. ? I will restart amlodipine 10 mg daily with goal of systolic blood pressure around 160. -For 2 weeks have blood pressure goal of 160 systolic as per recommendations from [facility]. ? Continue aspirin 325 for total of 4 days at which point transition to Eliquis. No bridging required. Stop warfarin ? Physical therapy, Occupational Therapy. ? Case management looking into rehab facility. -Continue lovastatin 80 mg daily ? Heart rate elevated this morning. Continue metoprolol 25 twice daily. -We will repeat CT head today to evaluate for edema. Full Code Family updated at bedside. Attestations Medical Necessity Statement*: Patient needs to stay in the hospital for continued physical therapy and Occupational Therapy. Need to monitor her in the hospital and watch for hemorrhagic conversion. She will eventually need rehab. Coding Level of Care Code Acute Community Education Coordinator for Zahraag Fwale Diagnoses Altered mental status R41.82 Acute confusion R41.0 Atrial fibrillation I48.91 Chronic anticoagulation Z79.01 CKD (chronic kidney disease) N18.9 CAD (coronary artery disease) of artery bypass graft I25.810 [place] vs. transplanted heart: [place] heart Associated angina: without angina Hypertension I10 Hypertension type: essential hypertension TIA (transient ischemic attack) G45.9
--- NOTE | 2021-12-26 13:21 | CTR_ITS ---
PROCEDURE INFORMATION: Exam: CT Head Without Contrast Exam date and time: 12/26/2021 10:00 PM Age: 81 years old Clinical indication: Altered mental status/memory loss; Confusion or disorientation; Additional info: Recent stroke TECHNIQUE: Imaging protocol: Computed tomography of the head without contrast. Radiation optimization: All CT scans at this facility use at least one of these dose optimization techniques: automated exposure control; mA and/or kV adjustment per patient size (includes targeted exams where dose is matched to clinical indication); or iterative reconstruction. COMPARISON: 1. MR head wo con* [id number] 12/24/2021 10:[address] head 12/23/2021 9:34 PM RADIATION DOSE METRICS: Total DLP (mGy-cm): 1015.28 FINDINGS: Brain: No acute intracranial hemorrhage or midline shift. There is decreased attenuation in the periventricular white matter, likely from microvascular disease. As before, there are changes compatible with subacute infarcts involving the genu and anterior body of the left corpus callosum, and adjacent frontal lobe. There is an old infarct involving medial left occipital lobe. Suspect very small old lacunar infarcts in the basal ganglia and thalamus regions bilaterally, probably not significantly changed. No definite new/acute infarct in the interval by CT. MRI could be more sensitive/specific for detection, as clinically directed. Cerebral ventricles: Ventricle size is normal for age. Paranasal sinuses: Minimal mucosal thickening in the right maxillary sinus. Included paranasal sinuses otherwise appear essentially clear. Mastoid air cells: No significant acute finding. Bones/joints: No definite acute skull fracture. Soft tissues: No significant acute finding. Vasculature: Vascular calcifications in the internal carotid and vertebral basilar systems. CT/CT head wo con* [id number] IMPRESSION: 1. No acute intracranial hemorrhage or midline shift. 2. As before, there are changes compatible with subacute infarcts involving the genu and anterior body of the left corpus callosum, and adjacent frontal lobe. 3. No definite new/acute acute infarct in the interval by CT, see above. 4. Changes of microvascular disease. 5. Other findings discussed above.
[2021-12-26 17:10] LABS: Glucose Point of Care 117 mg/dL (70-110)
[2021-12-26 20:52] LABS: Glucose Point of Care 275 mg/dL (70-110)
[2021-12-27 04:07] VITALS: BP 102/66; PULSE 69; RESP 17; TEMP 36.8; O2SAT 94
[2021-12-27] MEDS: heparin 5,000 unit/mL INJ 1 mL 5000 UNIT SUBCUT ×2 (04:25→17:36)
[2021-12-27 06:44] LABS: Glucose Point of Care 165 mg/dL (70-110)
[2021-12-27 07:44] VITALS: BP 178/80; PULSE 82; RESP 15; TEMP 36.3; O2SAT 95
[2021-12-27] MEDS: aspirin 325 mg Tablet PO (09:39)
[2021-12-27] MEDS: metoprolol tartrate 25 mg Tablet PO ×2 (09:40→20:49)
[2021-12-27] MEDS: amlodipine 10 mg Tablet PO (09:40)
[2021-12-27] MEDS: insulin lispro 100 unit/1 mL SUBCUT ×3 (09:40→21:12)
[2021-12-27 10:55] LABS: Glucose Point of Care 248 mg/dL (70-110)
--- NOTE | 2021-12-27 11:04 | PC.SOCIAL ---
Pg 2 IMM Explained to pt & family Pg 2 IMM. No questions voiced. Provided pt a copy. Initialed, dated, & timed a copy & placed in chart.
[2021-12-27 12:00] VITALS: BP 151/95; PULSE 69; RESP 16; TEMP 36.7; O2SAT 94
[2021-12-27] MEDS: FUROsemide 10 mg/mL SDV 2mL 20 MG IVP (13:48)
[2021-12-27] MEDS: colchicine 0.6 mg Tablet PO (13:48)
[2021-12-27] MEDS: allopurinol 100 mg Tablet PO (13:49)
--- NOTE | 2021-12-27 14:44 | XRR_ITS ---
PROCEDURE INFORMATION: Exam: XR Chest Exam date and time: 12/27/2021 2:54 PM Age: 81 years old Clinical indication: Other: Crackles in lungs TECHNIQUE: Imaging protocol: Radiologic exam of the chest. Views: 2 views. COMPARISON: CR (CHEST, ) 12/23/2021 9:37 PM FINDINGS: Lungs: Cardiac silhouette size, and vascularity are somewhat accentuated, likely related to poor inspiration/expansion however clinical correlation for mild CHF should be obtained. Upper lungs are clear. There is increasing opacity in the lateral left lung base/CP angle region which may represent worsening of atelectasis versus developing pneumonia and/or small left pleural effusion. Pleural spaces: No pneumothorax. Heart/Mediastinum: As above. Bones/joints: No acute osseous findings. Sternotomy wires and CABG clips. Other findings: Two views submitted. XR/XR chest 2V* [id number] IMPRESSION: 1. Accentuated cardiac silhouette size and vascularity. See discussion above. 2. Increasing opacity in the lateral left lung base. See discussion above.
--- NOTE | 2021-12-27 14:50 | P.PN_ITS ---
Subjective Subjective: Patient intermittently needed 2 L nasal cannula overnight however now she is on room air sitting up in chair beside the bed. Daughter at bedside. She also complains of her right ankle hurting. She was unable to bear weight on that this morning. Repeat CT head did not show any new changes. Vitals/I&O/Wt Last Vital Signs Temp 98.0 F 12/27/21 12:00 Pulse 69 12/27/21 12:00 Resp 16 12/27/21 12:00 BP 151/95 12/27/21 12:00 Pulse Ox 94 12/27/21 12:00 O2 Del Method 12/27/21 12:00 O2 Flow Rate 2 12/26/21 20:00 12/26/21 12/27/21 12/27/21 22:59 06:59 14:59 Intake Total 240 / 360 480 / 480 Balance 240 / 360 480 / 480 Physical Exam Narrative: General: Alert oriented x3, seen sitting up in bed with family at bedside. HEENT: Normocephalic, atraumatic, EOMI, breathing comfortably on room air Cardio: Irregularly irregular, normal S1-S2, Respiratory: Clear to auscultation bilaterally no wheezes no rhonchi GI: Abdomen soft, nontender, nondistended, bowel sounds + Extremities: Chronic right lower extremity edema present.? Right leg larger than left leg.? She has history of CABG. No skin rash or edema present. Ankle slightly tender to palpation but no lower extremity edema noted that is more than her usual baseline. Neuro: No gross change from previous neuro exams. Strength 4 out of 5 bilateral upper extremities, 3 out of 5 right lower extremity, 4 out of 5 left lower extremity. Follows all commands. Able to track head movement. Memory recall impaired. Data : 12/26/21 05:10 12/26/21 05:10 A&P Assessment and plan (1) Altered mental status: Status: Resolved (2) Acute confusion: Status: Resolved (3) Atrial fibrillation: Status: Acute (4) Chronic anticoagulation: Status: Acute (5) CKD (chronic kidney disease): Status: Acute (6) CAD (coronary artery disease) of artery bypass graft: Status: Acute Qualifiers: [place] vs. 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 #CKD, creatinine 1.2 at baseline #Possible gout flare, ankle pain ? Patient does have a history of TIA listed in the chart. Unsure of details however. She is confused. Urinalysis is negative. WBC 10.7. INR 1.27. Creatinine 1.2 at baseline -MRI had resulted around 12:30 PM today and showed acute ischemia involving left parasagittal frontal lobe and JOHANNY territory along the left frontal horn extending posteriorly into the left parasagittal deep frontal white matter with largest areas of ischemia measuring approximately 1.6 x 1.8 cm and 2.7 x 1.4 cm. -CTA head and neck showed focal area of severe stenosis and left vertebral artery proximal to basilar artery. ? Continue amlodipine 10 mg daily with goal of systolic blood pressure around 160. -For 2 weeks have blood pressure goal of 160 systolic as per recommendations from [facility]. ? Continue aspirin 325 for total of 4 days at which point transition to Eliquis. No bridging required. Stop warfarin ? Physical therapy, Occupational Therapy. ? Case management looking into rehab facility. -Continue lovastatin 80 mg daily ? Heart rate elevated this morning. Continue metoprolol 25 twice daily. -Head CT did not show increasing edema or midline shift. No new change compared to previous scan. ? Case management working for placement. ? Patient has a history of gout and was not getting her allopurinol since admission. She has missed 2 doses. We will restart her today. I will also give her one-time dose of colchicine for her ankle pain. Full Code Family updated at bedside. Attestations Medical Necessity Statement*: Patient needs to stay in the hospital for continued physical therapy and Occupational Therapy. Need to monitor her in the hospital and watch for hemorrhagic conversion. Plan to send to rehab once placement set up. 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 transplanted heart: [place] heart Associated angina: without angina Hypertension I10 Hypertension type: essential hypertension TIA (transient ischemic attack) G45.9
[2021-12-27 16:00] VITALS: BP 141/65; PULSE 73; RESP 16; TEMP 36.9; O2SAT 94
[2021-12-27 17:26] LABS: Glucose Point of Care 129 mg/dL (70-110)
[2021-12-27 19:43] LABS: Procalcitonin 0.08 ng/mL (0-0.5)
[2021-12-27 20:00] VITALS: BP 144/69; PULSE 80; RESP 17; TEMP 37; O2SAT 90
[2021-12-27 21:05] LABS: Glucose Point of Care 186 mg/dL (70-110)
[2021-12-27 23:02] VITALS: PULSE 80
[2021-12-28] VITALS (12 sets, daily range): BP systolic 132–185; BP diastolic 74–84; PULSE 66–93; RESP 15–16; TEMP 36.4–36.8; O2SAT 90–97
[2021-12-28] MEDS: heparin 5,000 unit/mL INJ 1 mL 5000 UNIT SUBCUT ×2 (04:03→17:03)
[2021-12-28 06:08] LABS: Basophils # 0.1 10^3/uL (0.0-0.1); Basophils % 0.9 %; Eosinophils # 0.3 10^3/uL (0.0-0.8); Eosinophils % 2.3 %; Hematocrit 50.4 % (37.0-47.0); Hemoglobin 16.2 g/dL (11.5-15.3); Lymphocytes # 2.9 10^3/uL (0.8-4.8); Lymphocytes % 24.8 %; Mean Corpuscular HGB Conc 32.1 g/dL (30.0-36.0); Mean Corpuscular Hemoglobin 29.8 pg (28.0-34.0); Mean Corpuscular Volume 92.6 fl (81-99); Mean Platelet Volume 10.5 fL (7.4-10.4); Monocytes # 1.1 10^3/uL (0.2-0.9); Neutrophils # 7.29 10^3/uL (1.8-7.7); Neutrophils % 62.7 %; Nucleated Red Blood Cells % 0 %; Platelet Count 356 10^3/cmm (130-400); Red Blood Count 5.44 10^6/uL (4.1-5.3); White Blood Count 11.6 10^3/uL (4.0-10.0)
[2021-12-28 06:19] LABS: Glucose Point of Care 132 mg/dL (70-110)
[2021-12-28 06:25] LABS: Anion Gap 15.9 (5-19); Blood Urea Nitrogen 34 mg/dL (8-23); Calcium 9.8 mg/dL (8.5-10.5); Carbon Dioxide 23 mmol/L (22-29); Chloride 99 mmol/L (98-107); Glucose 131 mg/dL (65-115); Magnesium 1.9 mg/dL (1.7-2.3); Osmolality Calculated 287 mOsm/kg (285-295); Potassium 3.9 mmol/L (3.5-5.1); Sodium 134 mmol/L (136-145)
--- NOTE | 2021-12-28 07:42 | XRR_ITS ---
PROCEDURE INFORMATION: Exam: XR Chest Exam date and time: 12/28/2021 8:16 AM Age: 81 years old Clinical indication: Cough; Additional info: R/O pneumonia TECHNIQUE: Imaging protocol: Radiologic exam of the chest. Views: 2 views. COMPARISON: CR XR chest 2V* [id number] 12/27/2021 2:54 PM FINDINGS: Lungs: Unremarkable. No consolidation. Pleural spaces: Unremarkable. No pleural effusion. No pneumothorax. Heart/Mediastinum: The heart size is normal for the AP projection. The patient has undergone coronary bypass surgery. There is calcification of the aorta. Bones/joints: Unremarkable. XR/XR chest 2V* [id number] IMPRESSION: No acute abnormality.
--- NOTE | 2021-12-28 08:14 | P.PN_ITS ---
Subjective Subjective: Seen this AM. Patient is 96% on room air. Procalcitonin 0.08. WBC count 11.6 today. She is not coughing. She did get Lasix 20 mg IV x1 yesterday. Patient did void x2 but no output recorded. X-ray chest portable yesterday showed a possible small pleural effusion and left lower base versus in creasing opacity. Patient has been afebrile. Family at bedside. Patient is able to tell me her name and that she had scrambled eggs for breakfast this morning. She says she is sleepy. Daughter says patient usually wakes up around 10 or 11:00 in the morning. Patient still complains of right ankle pain. She is able to move her foot and wiggle her toes and flex her foot with movement elicited however slightly tender to palpation is present. Vitals/I&O/Wt Last Vital Signs Temp 97.7 F 12/28/21 08:00 Pulse 62 12/28/21 08:00 Resp 16 12/28/21 08:00 BP 128/85 12/28/21 08:00 Pulse Ox 96 12/28/21 08:00 O2 Del Method 12/28/21 08:00 O2 Flow Rate 2 12/26/21 20:00 12/27/21 12/28/21 12/28/21 22:59 06:59 14:59 Intake Total 360 / 840 Balance 360 / 840 Physical Exam Narrative: General: Alert oriented x3, seen sitting up in bed with family at bedside. HEENT: Normocephalic, atraumatic, EOMI, breathing comfortably on room air Cardio: Irregularly irregular, normal S1-S2, Respiratory: Clear to auscultation bilaterally no wheezes no rhonchi GI: Abdomen soft, nontender, nondistended, bowel sounds + Extremities: Chronic right lower extremity edema present.? Right leg larger than left leg.? She has history of CABG. No skin rash or edema present. Ankle slightly tender to palpation but no lower extremity edema noted that is more than her usual baseline. We will to wiggle toes and dorsiflex foot with no pain. Neuro: No gross change from previous neuro exams. Strength 4 out of 5 bilateral upper extremities, 3 out of 5 right lower extremity, 4 out of 5 left lower extremity. Follows all commands. Able to track head movement. Memory recall im paired. Data : 12/28/21 05:45 12/28/21 05:45 A&P Assessment and plan (1) Altered mental status: Status: Resolved (2) Acute confusion: Status: Resolved (3) Atrial fibrillation: Status: Acute (4) Chronic anticoagulation: Status: Acute (5) CKD (chronic kidney disease): Status: Acute (6) CAD (coronary artery disease) of artery bypass graft: Status: Acute Qualifiers: Associated angina: without angina [place] vs. 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 #CKD, creatinine 1.1 at baseline #Possible gout flare, ankle pain ? Patient does have a history of TIA listed in the chart. Unsure of details however. She is confused. Urinalysis is negative. WBC 10.7. INR 1.27. Creatinine 1.2 at baseline -MRI had resulted around 12:30 PM today and showed acute ischemia involving left parasagittal frontal lobe and [place] territory along the left frontal horn extending posteriorly into the left parasagittal deep frontal white matter with largest areas of ischemia measuring approximately 1.6 x 1.8 cm and 2.7 x 1.4 cm. -CTA head and neck showed focal area of severe stenosis and left vertebral artery proximal to basilar artery. ? Continue amlodipine 10 mg daily with goal of systolic blood pressure around 160. -For 2 weeks have blood pressure goal of 160 systolic as per recommendations from [facility]. ? Continue aspirin 325 for total of 4 days at which point transition to Eliquis. No bridging required. Stop warfarin ? Physical therapy, Occupational Therapy. ? Case management looking into rehab facility. -Continue lovastatin 80 mg daily ? Continue metoprolol 25 twice daily. -Head CT did not show increasing edema or midline shift. No new change compared to previous scan. ? Case management working for placement. ? Patient has a history of gout and was not getting her allopurinol since admission. She has missed 2 doses. We will restart her today. Patient was given colchicine 0.6x1 yesterday. ? We will repeat chest x-ray two-view today to evaluate left lower lobe. Opaci ty versus pleural effusion versus infiltrate? Patient is afebrile, WBC 11.6. Procalcitonin 0.08. Patient is on room air 96%. Unsure if this is a developing pneumonia. I will hold off on antibiotics for now and monitor patient. Patient did get a dose of Lasix yesterday. Chest x-ray repeated today with 2 views. No acute abnormality. Pneumonia ruled out. Leukocytosis probably reactive right ankle pain. Placed on prednisone 20 mg daily for 3 days Full Code Family updated at bedside. Attestations Medical Necessity Statement*: Patient needs to stay in the hospital for continued physical therapy and Occupational Therapy. Plan to send to rehab once placement set up. 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 transplanted heart: [place] heart Hypertension I10 Hypertension type: essential hypertension TIA (transient ischemic attack) G45.9
[2021-12-28] MEDS: metoprolol tartrate 25 mg Tablet PO ×2 (08:31→20:01)
[2021-12-28] MEDS: aspirin 325 mg Tablet PO (08:31)
[2021-12-28] MEDS: amlodipine 10 mg Tablet PO (08:31)
[2021-12-28] MEDS: allopurinol 100 mg Tablet PO (08:31)
[2021-12-28 10:57] LABS: Glucose Point of Care 208 mg/dL (70-110)
[2021-12-28] MEDS: insulin lispro 100 unit/1 mL SUBCUT ×2 (13:07→20:40)
[2021-12-28] MEDS: predniSONE 20 mg Tablet PO (13:07)
--- NOTE | 2021-12-28 15:23 | PC.RESP ---
Patient saturating 89% on RA. Pt places on 2lpm. Saturations improved to 95 at rest.
[2021-12-28 16:54] LABS: Glucose Point of Care 140 mg/dL (70-110)
[2021-12-28 20:20] LABS: Glucose Point of Care 311 mg/dL (70-110)
[2021-12-29 03:46] VITALS: BP 176/74; PULSE 74; RESP 16; TEMP 36.6; O2SAT 96
[2021-12-29 06:00] VITALS: PULSE 70
[2021-12-29 06:47] LABS: Glucose Point of Care 129 mg/dL (70-110)
[2021-12-29 07:48] VITALS: BP 169/82; PULSE 73; RESP 17; TEMP 36.8; O2SAT 96
[2021-12-29 07:53] VITALS: PULSE 73; O2SAT 96
--- NOTE | 2021-12-29 09:20 | XRR_ITS ---
PROCEDURE INFORMATION: Exam: XR Right Foot Exam date and time: 12/29/2021 9:57 AM Age: 81 years old Clinical indication: Right; Prior surgery; Surgery date: 6+ months; Surgery type: Vein taken from her leg and used in her heart 21 months ago. Patient HX: --pt started having pain in her lower RT leg and RT foot this morning; Additional info: Pain, modified order with permission of pt's nurse riddhi to the correct side TECHNIQUE: Imaging protocol: Radiologic exam of the Right foot. Views: 1 or 2 views. COMPARISON: CR XR tibia fibula RT 2V [id number] 12/29/2021 9:54 AM FINDINGS: Bones/joints: No acute fracture or malalignment. Mild 1st MTP joint degenerative changes. Osteopenia. Soft tissues: Normal. XR/XR foot RT 2V [id number] IMPRESSION: No acute fracture or malalignment.
--- NOTE | 2021-12-29 09:20 | XRR_ITS ---
PROCEDURE INFORMATION: Exam: XR Right Tibia and Fibula Exam date and time: 12/29/2021 9:54 AM Age: 81 years old Clinical indication: Lower leg; Right; Prior surgery; Surgery date: 6+ months; Surgery type: Vein taken from her leg and used in her heart 21 months ago. Patient HX: History--pt started having pain in her lower RT leg and RT foot this morning. ; Additional info: Pain, modified order with permission from pt's nurse, riddhi, to the correct TECHNIQUE: Imaging protocol: Radiologic exam of the Right tibia and fibula. Views: 2 views. COMPARISON: No relevant prior studies available. FINDINGS: Bones/joints: No acute fracture or malalignment. Osteopenia. Soft tissues: Surgical clips are seen within the medial soft tissues of the lower thigh and leg. XR/XR tibia fibula RT 2V [id number] IMPRESSION: No acute fracture or malalignment.
[2021-12-29] MEDS: lisinopril 5 mg Tablet PO (09:35)
[2021-12-29] MEDS: amlodipine 10 mg Tablet PO (09:35)
[2021-12-29] MEDS: predniSONE 20 mg Tablet PO (09:35)
[2021-12-29] MEDS: apixaban 5 mg Tablet PO ×2 (09:35→11:56)
[2021-12-29] MEDS: allopurinol 100 mg Tablet PO (09:35)
[2021-12-29] MEDS: metoprolol tartrate 25 mg Tablet PO (09:36)
--- NOTE | 2021-12-29 10:46 | PC.SOCIAL ---
IMM update IMM updated with patient at bedside. Copy of page 2 provided. Patient verbalized understanding. Copy in chart initialed, timed and dated.
[2021-12-29 11:03] LABS: Glucose Point of Care 330 mg/dL (70-110)
--- NOTE | 2021-12-29 11:14 | PC.OT ---
PER NURSING PATIENT IN AFIB CURRENTLY. WILL HOLD OT TREATMENT THIS MORNING AND ATTEMPT IN P.M. IF APPROPRIATE.
[2021-12-29 11:18] VITALS: BP 152/72; PULSE 67; RESP 18; O2SAT 93
--- NOTE | 2021-12-29 11:53 | PC.NURSE ---
Notified Dr. Dawson about pt being afib with frequent PVC's, no orders at this time, pt heart rate staying between 63-80's.
[2021-12-29] MEDS: insulin lispro 100 unit/1 mL SUBCUT (12:03)
[2021-12-29 12:30] LABS: SARS Covid-2 Antigen Negative (Negative)
--- NOTE | 2021-12-29 12:55 | P.DS_ITS ---
Discharge Providers Date of Admission: 12/24/21 16:04 Date of Discharge: December 29, 2021 Attending Provider at Admission: Yong Allen MD Attending Provider at Discharge: Jean-Paul Dawson MD Consults: [facility] neurology Primary Care Provider: Sheela Rodriguez MD Diagnoses at Discharge Discharge Diagnosis (1) Altered mental status: Status: Resolved (2) Acute confusion: Status: Resolved (3) Atrial fibrillation: Status: Acute (4) Chronic anticoagulation: Status: Acute (5) CKD (chronic kidney disease): Status: Acute Permanent problem details: Patient denies (6) CAD (coronary artery disease) of artery bypass graft: Status: Acute Qualifiers: [place] vs. transplanted heart: [place] heart Associated angina: without angina Qualified Code(s): I25.810 - Atherosclerosis of coronary artery bypass graft(s) without angina pectoris (7) Hypertension: Status: Acute Qualifiers: Hypertension type: essential hypertension Qualified Code(s): I10 - Essential (primary) hypertension (8) TIA (transient ischemic attack): Status: Resolved Reason for Visit Reason for Visit: Possible CVA Brief History: History as per HPI: Lizzie Coughlin is a 81 year old female with a past history of atrial fibrillation recently on warfarin, held due to supratherapeutic INR, resumed yesterday, last INR 1.3, CAD, CKD, hypertension, hyperlipidemia, type 2 diabetes mellitus, TIA, recent hospitalization for TIA symptoms discharge yesterday who presents [facility] due to generalized weakness, increased confusion, right facial droop.? Patient was discharged from the hospital yesterday afternoon, most of her strokelike symptoms had resolved, she was able to walk on the hospital, however when she got her car and was on the way home because she was acting confused.? When she got to her home she had generalized weakness and could not get out of her car her son had to pick her up out of the car, he also noticed right-sided facial droop, possible slurring, increased confusion.? During my examination patient tells that she does not know why she is here, she is alert to person, to place, to time, she follows commands, no facial droop, no slurring of her words, responses are delayed, but she gets most of her questions appropriately, she recognizes family members at bedside, she does not know why she is here in the hospital she has no pain complaints, no chest pain, no shortness of breath, no nausea, no vomiting, no changes in her vision but she does tell me that her memory remains a bit hazy. Hospital Course Hospital Course Patient went to the hospital for that. For further evaluation and management of altered mental status secondary to possible stroke MRI was done which was consistent with acute ischemia involving the left parasagittal frontal lobe and [place] territory along with left frontal horn extending posteriorly into left parasagittal deep frontal white matter with largest area of ischemia measuring around 1.6 x 1.8 cm. Patient was again seen by neurology on-call. Treatment was changed accordingly. During hospitalization she continued to work well with physical therapy and is able to take diet accordingly. She was complaining of pain in her right leg and foot for which x-rays were done which ruled out any acute fractures. Safe discharge planning was again discussed in detail with the family. Patient and family were agreeable for discharge to SNF for further rehabilitation. She has been accepted at [facility]. She has been discharged hemodynamically stable condition. Physical Exam Narrative: General: Alert oriented x3, seen sitting up in bed with family at bedside. HEENT: Normocephalic, atraumatic, EOMI, breathing comfortably on room air Cardio: Irregularly irregular, normal S1-S2, Respiratory: Clear to auscultation bilaterally no wheezes no rhonchi GI: Abdomen soft, nontender, nondistended, bowel sounds + Extremities: Chronic right lower extremity edema present.? Right leg larger than left leg.? She has history of CABG. No skin rash or edema present. Ankle slightly tender to palpation but no lower extremity edema noted that is more than her usual baseline. We will to wiggle toes and dorsiflex foot with no pain. Neuro: No gross change from previous neuro exams. Strength 4 out of 5 bilateral upper extremities, 3 out of 5 right lower extremity, 4 out of 5 left lower extremity. Follows all commands. Able to track head movement. Memory recall impaired. Discharge Data Studies Completed and Pending Completed Studies During Hospitalization Category Date Time Status CT head wo con* [id number] Routine Cat Scan 12/26/21 13:[address] head wo con* [id number] Stat Cat Scan 12/23/21 21:26 Completed XR chest 1V portable [id number] Stat Exams 12/23/21 21:26 Completed XR chest 2V* [id number] Routine Exams 12/27/21 14:44 Completed XR chest 2V* [id number] Urgent Exams 12/28/21 07:42 Completed XR foot RT 2V [id number] Routine Exams 12/29/21 09:20 Completed XR tibia fibula RT 2V [id number] Routine Exams 12/29/21 09:20 Completed MR head wo con* [id number] Stat MRI 12/24/21 01:52 Completed CV. echo complete* [id number] Stat Ultrasound 12/24/21 01:52 Completed Pending at discharge Category Date Time Status Sputum Culture and Gram Stain Routine Lab 12/27/21 18:58 Uncollected Radiology Impressions Head MRI 12/24/21 01:52 IMPRESSION: 1. Acute ischemia involving the LEFT parasagittal frontal lobe in the [place] territory along the LEFT frontal horn extending posteriorly into the LEFT parasagittal deep frontal white matter. Largest areas of ischemia measures approximately 1.6 x 1.8 cm and 2.7 x 1.4 cm 2. Mild associated edema. No significant mass effect or midline shift. 3. Moderate to advanced small vessel changes with moderate parenchymal volume loss. 4. Small vessel changes in the [place]. 5. Tiny chronic lacunar infarct LEFT thalamus. 6. Mild mucosal thickening in the ethmoid air cells. Notified Ai Coronel MD at 12/24/2021 12:[address] 12/26/21 13:21 IMPRESSION: 1. No acute intracranial hemorrhage or midline shift. 2. As before, there are changes compatible with subacute infarcts involving the genu and anterior body of the left corpus callosum, and adjacent frontal lobe. 3. No definite new/acute acute infarct in the interval by CT, see above. 4. Changes of microvascular disease. 5. Other findings discussed above. Chest X-Ray 12/28/21 07:42 IMPRESSION: No acute abnormality. Foot X-Ray 12/29/21 09:20 IMPRESSION: No acute fracture or malalignment. Tibia/Fibula X-Ray 12/29/21 09:20 IMPRESSION: No acute fracture or malalignment. Laboratory Results WBC 11.6 10^3/uL (4.0-10.0) H 12/28/21 05:45 RBC 5.44 10^6/uL (4.1-5.3) H 12/28/21 05:45 Hgb 16.2 g/dL (11.5-15.3) H 12/28/21 05:45 Hct 50.4 % (37.0-47.0) H 12/28/21 05:45 MCV 92.6 fl (81-99) 12/28/21 05:45 MCH 29.8 pg (28.0-34.0) 12/28/21 05:45 MCHC 32.1 g/dL (30.0-36.0) 12/28/21 05:45 RDW 15.0 % (12.1-15.1) 12/28/21 05:45 Plt Count 356 10^3/cmm (130-400) 12/28/21 05:45 MPV 10.5 fL (7.4-10.4) H 12/28/21 05:45 Neut % (Auto) 62.7 % 12/28/21 05:45 Lymph % (Auto) 24.8 % 12/28/21 05:45 [place] % (Auto) 9.0 % 12/28/21 05:45 Eos % (Auto) 2.3 % 12/28/21 05:45 Baso % (Auto) 0.9 % 12/28/21 05:45 Neut # (Auto) 7.29 10^3/uL (1.8-7.7) 12/28/21 05:45 Lymph # (Auto) 2.9 10^3/uL (0.8-4.8) 12/28/21 05:45 [place] # (Auto) 1.1 10^3/uL (0.2-0.9) H 12/28/21 05:45 Eos # (Auto) 0.3 10^3/uL (0.0-0.8) 12/28/21 05:45 Baso # (Auto) 0.1 10^3/uL (0.0-0.1) 12/28/21 05:45 Nucleated RBC % (auto) 0 % 12/28/21 05:45 Nucleated RBCs # 0.0 /100WBC 12/28/21 05:45 PT 17.70 SECONDS (12.1-14.9) H 12/23/21 22:28 INR 1.43 (0.8-1.2) H 12/23/21 22:28 Specimen Type Arterial 12/23/21 23:22 Sample Site Radial, left 12/23/21 23:22 ABG pH 7.43 (7.35-7.45) 12/23/21 23:22 ABG pCO2 36.0 mmHg (35-45) 12/23/21 23:22 ABG pO2 67.4 mmHg (80.0-100.0) L 12/23/21 23:22 ABG HCO3 23.6 mmol/L (22-26) 12/23/21 23: ABG Base Excess -0.4 mmol/L (-2.0-2.0) 12/23/21 23:22 Spencer Test Pos 12/23/21 23:22 Hematocrit 46.9 % (37-47) 12/23/21 23: O2 Delivery Device Nc 12/23/21 23: O2 Liters/Min 2.0 % 12/23/21 23:22 Dry [employer] And [employer]er ID [place] 12/23/21 23:22 Sodium 134 mmol/L (136-145) L 12/28/21 05:45 Potassium 3.9 mmol/L (3.5-5.1) 12/28/21 05:45 Chloride 99 mmol/L (98-107) 12/28/21 05:45 Carbon Dioxide 23 mmol/L (22-29) 12/28/21 05:45 Anion Gap 15.9 (5-19) 12/28/21 05:45 BUN 34 mg/dL (8-23) H 12/28/21 05:45 Creatinine 1.1 mg/dL (0.5-0.9) H 12/28/21 05:45 GFR Calculation Not Reportable 12/28/21 05:45 Glucose 131 mg/dL (65-115) H 12/28/21 05:45 POC Glucose 330 mg/dL (70-110) H 12/29/21 10:53 Calculated Osmolality 287 mOsm/kg (285-295) 12/28/21 05:45 Lactate 1.0 mmol/L (0.5-2.2) 12/23/21 22:28 Calcium 9.8 mg/dL (8.5-10.5) 12/28/21 05:45 Magnesium 1.9 mg/dL (1.7-2.3) 12/28/21 05:45 Total Bilirubin 0.4 mg/dL (0.15-1.2) 12/23/21 22:28 AST 17 U/L (0-32) 12/23/21 22: ALT 10 U/L (0-33) 12/23/21 22: Alkaline Phosphatase 86 U/L (35-105) 12/23/21 22:28 Troponin T Baseline 16 ng/L (0-10) H 12/23/21 22:28 Troponin T 120 Minute 16.40 ng/L (0-10) H 12/24/21 00:56 Delta Troponin T 0.40 ABS# (0-10) 12/24/21 00:56 Troponin T Hi Sens 6Hr 17.98 ng/L (0-10) H 12/24/21 04:07 Troponin T Hi Sens 6Hr Delta 1.98 ng/L (0-12) 12/24/21 04:07 C-Reactive Protein 29.6 mg/L (0.0-4.9) H 12/23/21 22:28 NT-Pro-B Natriuret Pep 1857 pg/mL (0-450) H 12/23/21 22:28 Total Protein 7.1 g/dL (6.6-8.7) 12/23/21 22: Albumin 4.1 g/dL (3.5-5.2) 12/23/21 22: Globulin 3.0 g/dL (1.3-4.6) 12/23/21 22:28 Triglycerides 93 mg/dL (0-150) 12/24/21 04:02 Cholesterol 153 mg/dL (0-200) 12/24/21 04:02 LDL Cholesterol, Calc 84 mg/dL (50-129) 12/24/21 04:02 HDL Cholesterol 50 mg/dL (60-100) L 12/24/21 04:02 LDL/HDL Ratio 1.68 RATIO (0.00-3.22) 12/24/21 04:02 Cholesterol/HDL Ratio 3.06 mg/dL (0.0-4.40) 12/24/21 04:02 Procalcitonin 0.08 ng/mL (0-0.5) 12/27/21 05:10 TSH 2.33 uIU/mL (0.27-4.20) 12/23/21 22:28 Urine Color Yellow (Yellow) 12/23/21 23:09 Urine Appearance Hazy (CLEAR) A 12/23/21 23:09 Urine pH 5 (5-7) 12/23/21 23:09 Ur Specific [place] 1.020 (1.005-1.030) 12/23/21 23:09 Urine Protein 1+ (Negative) H 12/23/21 23:09 Urine Glucose (UA) Norm (Normal) 12/23/21 23:09 Urine Ketones 1+ (Negative) H 12/23/21 23:09 Urine Blood Neg (Negative) 12/23/21 23:09 Urine Nitrate Negative (Negative) 12/23/21 23:09 Urine Bilirubin 1+ (Negative) H 12/23/21 23:09 Urine Urobilinogen 1 mg/dL (Negative) H 12/23/21 23:09 Ur Leukocyte Esterase Trace (Negative) H 12/23/21 23:09 Urine RBC 0-4 /hpf (0-2) H 12/23/21 23:09 Urine WBC 5-10 /hpf (0-5) H 12/23/21 23:09 Ur Squamous Epith Cells 10-15 /hpf (0-5) H 12/23/21 23:09 Amorphous Sediment 1+ /hpf 12/23/21 23:09 Urine Bacteria 1+ /hpf (NONE) H 12/23/21 23:09 SARS-CoV-2 Ag (Rapid) Negative (Negative) 12/29/21 11:15 Vitals Last Vital Signs Temp 98.2 F 12/29/21 07:48 Pulse 67 12/29/21 11:18 Resp 18 12/29/21 11:18 BP 152/72 12/29/21 11:18 Pulse Ox 93 12/29/21 11:18 O2 Del Method 12/29/21 11:18 O2 Flow Rate 1 12/29/21 11:18 Discharge Plan Discharge Patient Disposition: Xfer SNF Condition: Stable Prescriptions: New Eliquis 5 mg Tablet 5 mg PO BID@0900,2100 Qty: 60 0RF lisinopril 5 mg Tablet 5 mg PO DAILY Qty: 30 0RF Continued allopurinol 100 mg tablet 100 mg PO DAILY amlodipine 10 mg tablet 10 mg PO DAILY aspirin [Adult Aspirin Regimen] 81 mg tablet,delayed release (DR/EC) 81 mg PO DAILY nitroglycerin [Nitrostat] 0.4 mg tablet, sublingual 0.4 mg sublingual Q5M PRN (Reason: Chest Pain) Rx Instructions: do not exceed 3 doses per episode lovastatin 40 mg tablet 80 mg PO DAILY hydralazine 25 mg tablet 25 mg PO TID Qty: 90 6RF metoprolol succinate 25 mg tablet extended release 24 hr 25 mg PO DAILY Qty: 90 3RF Changed isosorbide mononitrate 120 mg tablet extended release 24 hr 60 mg PO DAILY Qty: 30 0RF glimepiride 2 mg tablet 4 mg PO DAILY Qty: 30 0RF Discontinued clonidine HCl 0.3 mg tablet 0.3 mg PO DAILY Hold Instructions: see pcp lisinopril 10 mg tablet 20 mg PO DAILY warfarin 1 mg tablet 1 mg PO DAILY Discharge Orders: Discharge Order (Routine); Ordered 12/29/21 Ordered By: Jean-Paul Dawson Referrals: Sheela Rodriguez MD [Primary Care Provider] - 7-10 days Discharge Diet: Cardiac and Diabetic Discharge Activity: Resume usual activity Patient Instructions: Opioid Safety Activity Restrictions/Additional Instructions: Continue working with physical therapy/Occupational Therapy going forward. Warfarin, clonidine, lisinopril has been stopped. Instead Eliquis has been started. Take 5 mg twice daily. Lisinopril dose has been changed to 5 mg daily. Dose of Imdur has been changed to 60 mg daily. Please check your blood pressure daily and maintain a blood pressure diary and follow-up with a primary care provider with goal blood pressure less than 140/90 mmHg. Please check your blood sugars daily. Dose of glimepiride has been changed to 4 mg oral daily. Discharge Attestations Time Spent in Discharge Care*: greater than 30 min Specific Discharge Activities: educating patient, educating and/or supporting family/caregiver, discussing with caseworker intake/social workers/dc planners, documenting/other paperwork and evaluating patient/reviewing data Status at Discharge: Cognitive status at discharge: mildly impaired cognition , Behavioral status at discharge: cooperative , Functional status at discharge: uses cane/walker , Overall status at discharge: patient is progressing back to baseline Quality Metrics Clinical Quality Measures [ No reported AMI, CVA or VTE this stay] Coding Level of Care Code Acute Chg FW DC note Diagnoses Altered mental status R41.82 Acute confusion R41.0 Atrial fibrillation I48.91 Chronic anticoagulation Z79.01 CKD (chronic kidney disease) N18.9 CAD (coronary artery disease) of artery bypass graft I25.810 [place] vs. transplanted heart: [place] heart Associated angina: without angina Hypertension I10 Hypertension type: essential hypertension TIA (transient ischemic attack) G45.9
--- NOTE | 2021-12-29 13:51 | PC.CHAP ---
Pastoral Care Encounter/Spiritual Assessment Type of Contact [] Declined it consulting director visit [] Patient/Family/Request visit [] Outpatient visit [] Follow-up visit [] Physician referral [] Code/Alert [x] Routine visit [] Staff referral [] Actively dying [] Patient sleeping [x] Family support [] [] Out of room [] Palliative care [] [] Receiving care in room [] Pre-surgical visit [] Trauma [] Long length of stay [] ICU visit [] Other: Relational/Emotional Strength [x] Patient feels connected with others/family/visitors/staff [] Distress [] Loneliness/isolation [] Abandonment Spirituality of Patient [x] Person of [place] [x] Attends Christian of their [place] [x] Believes in Prayer [x] Reads Bible or Anabaptist materials [] There are Spiritual issues to be addressed [employer] Interventions [x] Prayer [x] Active listening [x] Non-anxious presence [x] Spiritual/emotional support [] Crisis/trauma care [] Spiritual counseling [] Bereavement support [] Provided bereavement packet [] Provided Bible/devotional materials [] Provided toy/stuffed animal, coloring book to patient or family member [] Provided Communion [] Anointing/[place] [] Salvation x[] Completed spiritual assessment [] Other: Impact on Illness or Injury [] Angry [] Fearful [] Anxious [] Often cries [] Exhaustion [] Unable to work [] Unable to attend bahai [] Unable to walk/stand [] Unable to read [] Unable to drive [] Unable to eat/drink [] Unable to sleep [] Unable to be with family [] Patient intubated [] Other: Summary Time spent with patient 10 min
--- NOTE | 2021-12-29 14:32 | PC.NURSE ---
Report call to Kaylene MARCOS at [facility].
[2021-12-29 14:33] VITALS: BP 152/72; PULSE 67; RESP 18; O2SAT 93
== END 2021-12-29 14:54 | disposition skilled nursing facility (03) | DRG 65 ==
LOC: ER 12-24 00:56 → MEDSURG 12-24 03:00
PROVIDERS: Internal Medicine; Admitting Provider Family Medicine; Emergency Provider Emergency Medicine; PCP Family Medicine; Visit Provider Student in an Organized Health Care Education/Training Program
DX: I63.9 Cerebral infarction, unspecified (principal); I25.810 Atherosclerosis of coronary artery bypass graft(s) without angina pectoris; T88.6XXA Anaphylactic reaction due to adverse effect of correct drug or medicament properly administered, initial encounter; R29.810 Facial weakness; R41.844 Frontal lobe and executive function deficit; R29.701 NIHSS score 1; I48.91 Unspecified atrial fibrillation; E11.22 Type 2 diabetes mellitus with diabetic chronic kidney disease; I12.9 Hypertensive chronic kidney disease with stage 1 through stage 4 chronic kidney disease, or unspecified chronic kidney disease; N18.9 Chronic kidney disease, unspecified; E78.5 Hyperlipidemia, unspecified; Z86.73 Personal history of transient ischemic attack (TIA), and cerebral infarction without residual deficits; M81.0 Age-related osteoporosis without current pathological fracture; E89.2 Postprocedural hypoparathyroidism; T46.6X5A Adverse effect of antihyperlipidemic and antiarteriosclerotic drugs, initial encounter; M25.571 Pain in right ankle and joints of right foot; Z79.82 Long term (current) use of aspirin
CPT/HCPCS: 36415; 36416; 36600; 70450; 70496; 70498; 70551; 71045; 71046; 73590; 73620; 80048; 80053; 80061; 81001; 81003; 82803; 82962; 83036; 83605; 83735; 83880; 84145; 84443; 84484; 85025; 85610; 85730; 86140; 87040; 87426; 92507; 92526; 92610; 93005; 93306; 94664; 96360; 96372; 97110; 97116; 97161; 97165; 97167; 97530; 97535; 99285; G0378; J1644; J1815; J1940; J7030; J7512; Q9967

== ENCOUNTER → 2022-01-10 12:03 | Outpatient (BNVA) | payer MEDICARE, OTHER, SELFPAY | PROVIDERS: PCP Family Medicine; Referring Provider Internal Medicine; Visit Provider Specialist | DX: I48.91 Unspecified atrial fibrillation (principal); Z86.73 Personal history of transient ischemic attack (TIA), and cerebral infarction without residual deficits; I65.02 Occlusion and stenosis of left vertebral artery; I10 Essential (primary) hypertension; E11.65 Type 2 diabetes mellitus with hyperglycemia; Z79.01 Long term (current) use of anticoagulants | CPT/HCPCS: 99204; 99205 ==

== ENCOUNTER → 2022-03-14 10:00 | Outpatient (BNVA) | payer MEDICARE, OTHER, SELFPAY | PROVIDERS: PCP Family Medicine; Visit Provider Specialist | DX: G30.9 Alzheimer's disease, unspecified (principal); F02.80 Dementia in other diseases classified elsewhere, unspecified severity, without behavioral disturbance, psychotic disturbance, mood disturbance, and anxiety; Z86.73 Personal history of transient ischemic attack (TIA), and cerebral infarction without residual deficits; I48.91 Unspecified atrial fibrillation; Z79.01 Long term (current) use of anticoagulants; I65.09 Occlusion and stenosis of unspecified vertebral artery | CPT/HCPCS: 96116; 99215 ==

== ENCOUNTER → 2022-06-14 10:26 | Outpatient (BNVA) | payer MEDICARE, OTHER, SELFPAY | PROVIDERS: PCP Family Medicine; Visit Provider Specialist | DX: G30.9 Alzheimer's disease, unspecified (principal); F02.80 Dementia in other diseases classified elsewhere, unspecified severity, without behavioral disturbance, psychotic disturbance, mood disturbance, and anxiety; G43.711 Chronic migraine without aura, intractable, with status migrainosus; Z86.73 Personal history of transient ischemic attack (TIA), and cerebral infarction without residual deficits | CPT/HCPCS: 99214 ==

== ENCOUNTER → 2022-08-01 08:44 | Outpatient (BNVA) | payer MEDICARE, OTHER, SELFPAY | PROVIDERS: PCP Family Medicine; Visit Provider Dermatology | DX: Z48.02 Encounter for removal of sutures (principal) | CPT/HCPCS: 99024 ==

== ENCOUNTER 2022-09-23 11:55 | Outpatient (RCR) | payer MEDICARE, OTHER, SELFPAY | END 2022-10-07 23:59 | disposition home or self-care (01) | LOC: SPT 11:55 | PROVIDERS: PCP Family Medicine; Visit Provider Family Medicine | DX: R60.0 Localized edema (principal) | CPT/HCPCS: 29581; 97140; 97161 ==

== ENCOUNTER → 2023-01-03 12:27 | Outpatient (BNVA) | payer MEDICARE, OTHER, SELFPAY | PROVIDERS: PCP Family Medicine; Visit Provider Specialist | DX: R41.3 Other amnesia (principal); G43.711 Chronic migraine without aura, intractable, with status migrainosus; G30.9 Alzheimer's disease, unspecified; F02.80 Dementia in other diseases classified elsewhere, unspecified severity, without behavioral disturbance, psychotic disturbance, mood disturbance, and anxiety; I48.91 Unspecified atrial fibrillation; Z79.01 Long term (current) use of anticoagulants | CPT/HCPCS: 99214 ==

== ENCOUNTER → 2023-01-04 13:49 | Outpatient (BNVA) | payer MEDICARE, OTHER, SELFPAY | PROVIDERS: PCP Family Medicine; Visit Provider Nurse Practitioner Family | DX: F42.4 Excoriation (skin-picking) disorder (principal); Z08 Encounter for follow-up examination after completed treatment for malignant neoplasm; Z85.828 Personal history of other malignant neoplasm of skin; D04.62 Carcinoma in situ of skin of left upper limb, including shoulder | CPT/HCPCS: 17260; 99212 ==

== ENCOUNTER → 2023-01-09 13:21 | Outpatient (BNVA) | payer MEDICARE, OTHER, SELFPAY | PROVIDERS: PCP Family Medicine; Visit Provider Internal Medicine Cardiovascular Disease | DX: I25.810 Atherosclerosis of coronary artery bypass graft(s) without angina pectoris (principal); I65.09 Occlusion and stenosis of unspecified vertebral artery; I48.91 Unspecified atrial fibrillation; Z79.01 Long term (current) use of anticoagulants; I12.9 Hypertensive chronic kidney disease with stage 1 through stage 4 chronic kidney disease, or unspecified chronic kidney disease; E11.22 Type 2 diabetes mellitus with diabetic chronic kidney disease; N18.9 Chronic kidney disease, unspecified; Z79.84 Long term (current) use of oral hypoglycemic drugs; Z95.1 Presence of aortocoronary bypass graft; E78.5 Hyperlipidemia, unspecified; Z86.39 Personal history of other endocrine, nutritional and metabolic disease | CPT/HCPCS: 99213 ==

== ENCOUNTER → 2023-04-05 14:07 | Outpatient (BNVA) | payer MEDICARE, OTHER, SELFPAY | PROVIDERS: PCP Family Medicine; Visit Provider Nurse Practitioner Family | DX: D04.62 Carcinoma in situ of skin of left upper limb, including shoulder (principal); Z85.828 Personal history of other malignant neoplasm of skin; L57.0 Actinic keratosis; L81.4 Other melanin hyperpigmentation | CPT/HCPCS: 17000; 99213 ==

== ENCOUNTER → 2023-07-11 10:30 | Outpatient (BNVA) | payer MEDICARE, OTHER, MEDICAID, SELFPAY | PROVIDERS: PCP Family Medicine; Visit Provider Internal Medicine Cardiovascular Disease | DX: I25.810 Atherosclerosis of coronary artery bypass graft(s) without angina pectoris (principal); I48.19 Other persistent atrial fibrillation; Z79.01 Long term (current) use of anticoagulants; E78.2 Mixed hyperlipidemia; I12.9 Hypertensive chronic kidney disease with stage 1 through stage 4 chronic kidney disease, or unspecified chronic kidney disease; N18.9 Chronic kidney disease, unspecified | CPT/HCPCS: 99214 ==

== ENCOUNTER → 2023-12-12 09:40 | Outpatient (BNVA) | payer MEDICARE, OTHER, MEDICAID, SELFPAY | PROVIDERS: PCP Family Medicine; Visit Provider Nurse Practitioner Family | DX: L57.0 Actinic keratosis (principal); L81.4 Other melanin hyperpigmentation; L91.8 Other hypertrophic disorders of the skin; D69.2 Other nonthrombocytopenic purpura; Z85.828 Personal history of other malignant neoplasm of skin | CPT/HCPCS: 17000; 99213 ==

== ENCOUNTER → 2024-01-03 11:53 | Outpatient (BNVA) | payer MEDICARE, OTHER, MEDICAID, SELFPAY | PROVIDERS: PCP Family Medicine; Visit Provider Specialist | DX: R41.3 Other amnesia (principal); G43.711 Chronic migraine without aura, intractable, with status migrainosus; G30.9 Alzheimer's disease, unspecified; F02.80 Dementia in other diseases classified elsewhere, unspecified severity, without behavioral disturbance, psychotic disturbance, mood disturbance, and anxiety; I48.19 Other persistent atrial fibrillation; Z79.01 Long term (current) use of anticoagulants | CPT/HCPCS: 99213 ==

== ENCOUNTER → 2024-01-08 10:47 | Outpatient (BNVA) | payer MEDICARE, OTHER, MEDICAID, SELFPAY | PROVIDERS: PCP Family Medicine; Visit Provider Nurse Practitioner Family | DX: I25.810 Atherosclerosis of coronary artery bypass graft(s) without angina pectoris (principal); I48.19 Other persistent atrial fibrillation; I10 Essential (primary) hypertension | CPT/HCPCS: 99214 ==

== ENCOUNTER → 2024-07-22 13:55 | Outpatient (BNVA) | payer MEDICARE, OTHER, MEDICAID, SELFPAY | PROVIDERS: PCP Family Medicine; Visit Provider Internal Medicine Cardiovascular Disease | DX: I25.810 Atherosclerosis of coronary artery bypass graft(s) without angina pectoris (principal); I48.19 Other persistent atrial fibrillation; Z79.01 Long term (current) use of anticoagulants; Z79.82 Long term (current) use of aspirin; E78.2 Mixed hyperlipidemia; I12.9 Hypertensive chronic kidney disease with stage 1 through stage 4 chronic kidney disease, or unspecified chronic kidney disease; N18.9 Chronic kidney disease, unspecified; Z95.1 Presence of aortocoronary bypass graft | CPT/HCPCS: 99214 ==